=== PATIENT | female | born 1940 | race Caucasian/White ===

== ENCOUNTER → 2016-08-21 | Outpatient (CLI) | payer MEDICARE ==
[2016-03-15 11:15] VITALS: BP 117/70
[~2016-08-21] MED LIST: ASCO100065 PO; FERR325C PO; GLUC1CAP14 PO; HYDR-2666 PO; HYDR25TA9 PO; LOSA100T6 PO; LOSA1TAB17 PO; MULT1TAB97 PO; NAPR550T3 PO; OMEG1CAP28 PO; TRAM50TA PO; VITA1CAP PO; ZOLP10TA PO
--- NOTE | 2016-08-21 14:20 | KCIC ---
PROCEDURE MRI lumbar spine without contrast. HISTORY Spinal stenosis, low back pain for years, bilateral lower extremity with numbness, symptoms worse with standing TECHNIQUE Multiplanar, multi sequential, non contrast MR imaging of the lumbar spine was performed. Contrast: None COMPARISON November 22, 2015 FINDINGS There are again interbody cages at L4-5. There is again superior height loss of L2 not associated with significant marrow edema. There is similar minimal posterior subluxation L2 relative to L3 and L1 relative to L2. There is negligible anterior spondylolisthesis at L4-5. There is advanced degenerative disc disease L1-2 and L2-3 to a lesser degree at L3-4 as seen previously. Conus terminates at L1. Trace L2-3 endplate edema is likely reactive/degenerative in etiology. T10-11: There has been posterior decompression. There is minimal posterior bulge. There is facet degenerative change. There is likely at least moderate left and mild right neural foramina compromise at this level. T11-12: There is facet degenerative change. Spinal canal and neural foramina are adequate T12-L1: There is disc osteophyte complex, superimposed bulge and more central protrusion. There is indentation upon the ventral thecal sac, narrowing of the central canal to approximately 7 millimeters somewhat greater than previously.. There is contact of the ventral surface of distal cord. Neural foramina are adequate. L1-2: There again has been posterior decompression. There is again minimal disc osteophyte complex and bulge. Spinal canal and neural foramina are adequate. L2-L3: There again has been posterior decompression. There is facet hypertrophic change greater on the left. There is a minimal disc osteophyte complex and bulge. Spinal canal is overall adequate. There is again severe neural foramina compromise bilaterally. L3-4: There is again severe bilateral facet hypertrophic change. There again has been posterior decompression. Spinal canal is not significantly narrowed. There is again fairly severe neural foramina compromise bilaterally. L4-5: There again has been posterior decompression. There is again facet hypertrophic change, also residual mild buckling of the ligamentum flavum on the left. Spinal canal is overall adequate, mild indentation upon the posterior left thecal sac unchanged. Neural foramina are overall adequate. L5-S1: There is again severe facet degenerative change and buckling of the ligamentum flavum. There is again moderate right and mild left lateral recess stenosis from posteriorly. There is overall mild narrowing of the left neural foramen, right neural foramen minimally narrowed from posteriorly proximally. IMPRESSION 1. Comparing with the November 2015 exam, findings are mostly unchanged although somewhat greater degree of indentation upon the thecal sac centrally at T12-L1 by more central protrusion, contact of the distal cord at this level. There again has been multilevel level posterior decompression. There is similar moderate right and mild left lateral recess stenosis L5-S1. 2. There is multilevel neural foramina compromise as stated including severe narrowing bilaterally at L3-4 and L2-L3. 3. There is again multilevel lumbar degenerative disc disease greatest at L1-L2 and L2-3. Electronically signed by: Stanley Garnica MD (Aug 21, 2016 14:18:40)
== END | disposition home or self-care (01) ==
LOC: KCIC MRI 12:41
PROVIDERS: ATTEND Family Medicine
DX: M51.36 Other intervertebral disc degeneration, lumbar region (principal)
CPT/HCPCS: 72148

== ENCOUNTER → 2016-09-05 | Outpatient (CLI) | payer MEDICARE ==
[2016-03-15 11:15] VITALS: BP 117/70
--- NOTE | 2016-09-05 13:38 | KCIC ---
PROCEDURE MRI thoracic spine without contrast. HISTORY Stenosis. Leg numbness. Right hand numbness. Prior surgery in lumbar spine. TECHNIQUE Sagittal T1, sagittal T2, sagittal STIR, axial T1, and axial T2 sequences are provided. COMPARISON December 09, 2015. FINDINGS Since prior study, there has been decompression at T10-T11 and T11-T12. Numbering system is based on counting down from the dens, again patient has a transitional vertebral body as noted on prior reports. There is endplate edema at T9-T10 which appears degenerative. There is no worrisome marrow lesion. There is no change in alignment. 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 There is no cord signal abnormality. Allowing for mild motion degradation on the axial series, degenerative findings will be estimated below: C7-T1: Disc osteophyte complex and uncinate process spurring is noted with left foraminal narrowing. T1-T2: Disc osteophyte complex and facet hypertrophy is noted with high-grade bilateral foraminal narrowing and mild canal stenosis. T2-T3: Disc osteophyte complex with left paracentral protruding component is noted. Protruding component contacts the cord with cord flattening. There is mild to moderate foraminal narrowing. T3-T4: Facet hypertrophy is noted with at least mild right foraminal narrowing. There is minimal canal stenosis. There may be buckling of ligamentum flavum. T4-T5: There is no canal or foraminal compromise. T5-T6: There is mild facet hypertrophy and mild foraminal narrowing. T6-T7: Mild disc bulge and facet hypertrophy are noted with mild to moderate left and mild right foraminal narrowing. T7-T8: Disc osteophyte complex and facet hypertrophy are noted with at least mild foraminal narrowing and minimal canal stenosis. T8-T9: These 2 vertebral bodies are partially fused. This is probably degenerative. There is a disc osteophyte complex with mild to moderate right and mild left foraminal narrowing, effacement of the ventral CSF column. T9-T10: Disc osteophyte complex and facet hypertrophy along with probable buckling of ligamentum flavum are noted. There is canal stenosis which is at least moderate, midline AP diameter of the thecal sac narrowed to 5 millimeters. There is cord flattening but no definite cord hyperintensity. There is high-grade bilateral foraminal narrowing. Findings at this level have increased. T10-T11: There is an irregular disc osteophyte complex with left paracentral protruding component. There is facet hypertrophy. There is left lateral recess narrowing. There is compression of the cord on the left but no cord hyperintensity. Midline AP diameter of the thecal sac is mildly narrowed to 8 millimeters although this is improved from the preoperative MRI. There is high-grade bilateral foraminal narrowing. T11-T12: Disc bulge and facet hypertrophy are noted without canal stenosis. Decompression is noted. Foraminal narrowing is at least mild to moderate. T12-L1: Disc bulge and facet hypertrophy are noted with no high-grade canal or foraminal compromise. L1-L2: Disc osteophyte complex and facet hypertrophy are noted, midline AP diameter of the thecal sac narrowed to 8 millimeters. Left kidney may be absent surgically, stable soft tissue intensity in the left renal fossa. IMPRESSION 1. Since the prior study there has been decompression performed at T10-T11 and T11-T12. There is decrease in degree of canal stenosis at these levels. 2. Canal stenosis is now most notable at T9-T10 where it is increased from prior study. Electronically signed by: Nikos Palmer MD (Sep 05, 2016 13:36:32)
== END | disposition home or self-care (01) ==
LOC: KCIC MRI 11:19
PROVIDERS: ATTEND Neurological Surgery
DX: M48.04 Spinal stenosis, thoracic region (principal)
CPT/HCPCS: 72146

== ENCOUNTER 2016-11-10 13:20 | Inpatient (IN) | payer MEDICARE ==
[~2016-11-10] VITALS: Ht 165.1 cm; Wt 116.6 kg
[~2016-11-10 13:20] MED LIST changes: -GLUC1CAP14 PO; +GLUCOSAMINE 1,1 EACH PO
[2016-11-10] MEDS ORDERED: IV NORMAL SALINE 1000ML BAG 1,000 ML IV ONE (13:45)
[2016-11-10] MEDS ORDERED: ONDANSETRON PF 4 MG/2 ML VIAL. IV ONE (13:45)
[2016-11-10 13:59] LABS: BASO % 0 % (0-3); EOS % 1 % (0-3); HEMATOCRIT 38.5 % (36.0-47.0); HEMOGLOBIN 12.5 g/dL (12.0-15.5); LYMPH # 1.5 x10^3/uL (1.0-4.8); LYMPH % 17 % (24-48); MEAN CORPUSCULAR HEMOGLOBIN 27 pg (25-35); MEAN CORPUSCULAR HGB CONC 33 g/dL (31-37); MEAN CORPUSCULAR VOLUME 81 fL (79-100); MONO % 5 % (0-9); NEUT % 78 % (31-73); PLATELET COUNT 234 x10^3/uL (140-400); RED BLOOD COUNT 4.74 x10^6/uL (3.50-5.40); RED CELL DISTRIBUTION WIDTH 15.1 % (11.5-14.5); WHITE BLOOD COUNT 9.2 x10^3/uL (4.0-11.0)
[2016-11-10 14:08] LABS: INR 1.1 (0.8-1.1); PROTHROMBIN TIME PATIENT 13.5 SEC (11.7-14.0)
[2016-11-10 14:11] LABS: CALCIUM 9.2 mg/dL (8.5-10.1); CREATININE 0.9 mg/dL (0.6-1.0); GFR 61.2; POTASSIUM 4.2 mmol/L (3.5-5.1)
[2016-11-10 14:16] LABS: ALBUMIN 4.1 g/dL (3.4-5.0); ALBUMIN/GLOBULIN RATIO 1.1 (1.0-1.7); TOTAL BILIRUBIN 0.4 mg/dL (0.2-1.0); TOTAL PROTEIN 7.8 g/dL (6.4-8.2)
--- NOTE | 2016-11-10 14:22 | RAD ---
CT head without contrast History: Dizziness. Comparison: None. Procedure: Axial images are obtained of the head from the skull base through the vertex without IV contrast. One or more of the following individualized dose reduction techniques were utilized for the study: Automated exposure control Adjustment of mA and/or kV according to patient's size Use of iterative reconstruction technique. Findings: The ventricles and sulci are normal for the patient's age. No mass-effect, intracranial mass, midline shift, hemorrhage or obvious acute infarction is identified. Basilar cisterns are patent. Bone windows demonstrate no significant calvarial abnormality. The visualized paranasal sinuses appear clear. Impression: No acute intracranial process. Please note that CT can be relatively insensitive to acute ischemic infarction for up to 24 hours after symptom onset.
--- NOTE | 2016-11-10 14:25 | PHYS DOC ---
Past Medical History Past Medical History: Arthritis, Hypertension Additional Past Medical Histor: spinal stenosis Past Surgical History: Cholecystectomy, Hysterectomy Additional Past Surgical Histo: nephrectomy, shoulders, back, wrist Alcohol Use: Occasionally Drug Use: None Adult General Chief Complaint Chief Complaint: WEAKNESS/GENERALIZED HPI HPI Patient is a 76 year old female presenting to the emergency department for evaluation of a near syncope episode while she was getting her hair done. She says that all of a sudden she felt warm and lightheaded and as she was going to throw up. She tried walking and felt very weak diffusely. She says that she is having a headache and neck pain in addition to generalized myalgias and arthralgias. She is in no obvious distress with normal vital signs. Review of Systems Review of Systems Constitutional: Denies fever or chills [] Eyes: Denies change in visual acuity, redness, or eye pain [] HENT: Denies nasal congestion or sore throat [] Respiratory: Denies cough or shortness of breath [] Cardiovascular: No additional information not addressed in HPI [] GI: Denies abdominal pain, nausea, vomiting, bloody stools or diarrhea [] : Denies dysuria or hematuria [] Musculoskeletal: Denies back pain or joint pain [] Integument: Denies rash or skin lesions [] Neurologic: + headache, No focal weakness. +dizziness Current Medications Current Medications Current Medications Medications (Trade) Dose Ordered Sig/Gustavo Start Time Stop Time Status Last Admin Dose Admin Ondansetron HCl (Zofran) 8 mg 1X ONCE 11/10/16 13:45 11/10/16 13:46 DC 11/10/16 14:14 8 MG Sodium Chloride 1,000 ml @ 1,000 mls/hr 1X ONCE 11/10/16 13:45 11/10/16 14:44 DC 11/10/16 14:15 1,000 MLS/HR Allergies Allergies Allergies Coded Allergies Type Severity Reaction Last Updated Verified Iodine and Iodide Containing Produc Allergy Intermediate HOT FLASHES 03/14/16 Yes Sulfa (Sulfonamide Antibiotics) Allergy Intermediate 03/14/16 Yes Physical Exam Physical Exam Constitutional: Well developed, well nourished, no acute distress, non-toxic appearance. [] HENT: Normocephalic, atraumatic, bilateral external ears normal, oropharynx moist, no oral exudates, nose normal. [] Eyes: PERRLA, EOMI, conjunctiva normal, no discharge. [] Neck: Normal range of motion, no tenderness, supple, no stridor. [] Cardiovascular:Heart rate regular rhythm, no murmur [] Lungs & Thorax: Bilateral breath sounds clear to auscultation [] Abdomen: Bowel sounds normal, soft, no tenderness, no masses, no pulsatile masses. [] Skin: Warm, dry, no erythema, no rash. [] Back: No tenderness, no CVA tenderness. [] Extremities: No tenderness, no cyanosis, no clubbing, ROM intact, no edema. [] Neurologic: Alert and oriented X 3, normal motor function, normal sensory function, no focal deficits noted. [] Current Patient Data Vital Signs Vital Signs Date Time Temp Pulse Resp B/P (MAP) Pulse Ox O2 Delivery O2 Flow Rate FiO2 11/10/16 14:30 60 18 168/84 (112) 94 Room Air 11/10/16 13:55 97.7 97.7 Lab Values Laboratory Tests Test 11/10/16 13:47 White Blood Count 9.2 x10^3/uL (4.0-11.0) Red Blood Count 4.74 x10^6/uL (3.50-5.40) Hemoglobin 12.5 g/dL (12.0-15.5) Hematocrit 38.5 % (36.0-47.0) Mean Corpuscular Volume 81 fL (79-100) Mean Corpuscular Hemoglobin 27 pg (25-35) Mean Corpuscular Hemoglobin Concent 33 g/dL (31-37) Red Cell Distribution Width 15.1 % (11.5-14.5) H Platelet Count 234 x10^3/uL (140-400) Neutrophils (%) (Auto) 78 % (31-73) H Lymphocytes (%) (Auto) 17 % (24-48) L Monocytes (%) (Auto) 5 % (0-9) Eosinophils (%) (Auto) 1 % (0-3) Basophils (%) (Auto) 0 % (0-3) Neutrophils # (Auto) 7.1 x10^3uL (1.8-7.7) Lymphocytes # (Auto) 1.5 x10^3/uL (1.0-4.8) Monocytes # (Auto) 0.4 x10^3/uL (0.0-1.1) Eosinophils # (Auto) 0.1 x10^3/uL (0.0-0.7) Basophils # (Auto) 0.0 x10^3/uL (0.0-0.2) Prothrombin Time 13.5 SEC (11.7-14.0) Prothrombin Time INR 1.1 (0.8-1.1) PTT 28 SEC (24-38) Sodium Level 134 mmol/L (136-145) L Potassium Level 4.2 mmol/L (3.5-5.1) Chloride Level 96 mmol/L (98-107) L Carbon Dioxide Level 27 mmol/L (21-32) Anion Gap 11 (6-14) Blood Urea Nitrogen 19 mg/dL (7-20) Creatinine 0.9 mg/dL (0.6-1.0) Estimated GFR (Cockcroft-Gault) 61.2 BUN/Creatinine Ratio 21 (6-20) H Glucose Level 124 mg/dL (70-99) H Calcium Level 9.2 mg/dL (8.5-10.1) Magnesium Level 2.0 mg/dL (1.8-2.4) Total Bilirubin 0.4 mg/dL (0.2-1.0) Aspartate Amino Transferase (AST) 21 U/L (15-37) Alanine Aminotransferase (ALT) 13 U/L (14-59) L Alkaline Phosphatase 81 U/L (46-116) Creatine Kinase 160 U/L (26-192) Troponin I Quantitative < 0.017 ng/mL (0.000-0.055) SR-[id number]-[id number]-Type Natriuretic Peptide 84 pg/mL (0-124) Total Protein 7.8 g/dL (6.4-8.2) Albumin 4.1 g/dL (3.4-5.0) Albumin/Globulin Ratio 1.1 (1.0-1.7) Lipase 182 U/L (73-393) Thyroid Stimulating Hormone (TSH) 2.118 uIU/mL (0.358-3.74) Laboratory Tests 11/10/16 13:47 Laboratory Tests 11/10/16 13:47 EKG EKG Normal sinus rhythm at 68 beats per minutes with leftward axis no obvious ST elevation or depression and normal T waves. Radiology/Procedures Radiology/Procedures CT head without contrast History: Dizziness. Comparison: None. Procedure: Axial images are obtained of the head from the skull base through the vertex without IV contrast. One or more of the following individualized dose reduction techniques were utilized for the study: Automated exposure control Adjustment of mA and/or kV according to patient's size Use of iterative reconstruction technique. Findings: The ventricles and sulci are normal for the patient's age. No mass-effect, intracranial mass, midline shift, hemorrhage or obvious acute infarction is identified. Basilar cisterns are patent. Bone windows demonstrate no significant calvarial abnormality. The visualized paranasal sinuses appear clear. Impression: No acute intracranial process. Please note that CT can be relatively insensitive to acute ischemic infarction for up to 24 hours after symptom onset. DICTATED and SIGNED BY: CARLIE ALICIA MD DATE: 11/10/16 1418 Course & Med Decision Making Course & Med Decision Making Patient with near syncopal episode and still says that she feels poorly so she' ll be admitted for further observation and treatment. Dragon Disclaimer Dragon Disclaimer This electronic medical record was generated, in whole or in part, using a voice recognition dictation system. Departure Departure Impression: Primary Impression: Near syncope Disposition: ADMITTED INPATIENT Admitting Physician: Evelyn Hess Condition: STABLE Referrals: UNKNOWN PCP NAME (PCP) VICTOR HUGO BAEZ DO Nov 10, 2016 14:25
--- NOTE | 2016-11-10 15:01 | EKG ---
[facility] [address] [place] [address] Test Date: 2016-11-10 Test Time: 13:50:30 Pat Name: RAMYA LIMON Department: Room: Gender: F Guest House Manager: : 1940 Requested By: VICTOR HUGO BAEZ Order Number: [id number] Reading MD: Isaias Taylor Measurements Intervals Stevenson Rate: 68 P: -14 FL: 162 QRS: -10 QRSD: 94 T: 31 QT: 398 QTc: 428 Interpretive Statements SINUS RHYTHM LEFTWARD AXIS R-S TRANSITION ZONE IN V LEADS DISPLACED TO THE LEFT OTHERWISE NORMAL ECG RI6.01 Unconfirmed report No previous ECG available for comparison Electronically Signed On 11-15-2016 9:31:41 CDT by Isaias Taylor
[2016-11-10] MEDS ORDERED: LABETALOL 20 MG/4 ML DISP.SYRIN. IVP ONE (15:15)
[2016-11-10] MEDS ORDERED: ONDANSETRON PF 4 MG/2 ML VIAL. IV PRN ×2 (15:15→15:43)
[2016-11-10 15:33] LABS: BILIRUBIN,URINE NEGATIVE (NEG); GLUCOSE,URINE NEGATIVE (NEG); NITRITE,URINE NEGATIVE (NEG); PROTEIN,URINE NEGATIVE (NEG-TRACE); UROBILINOGEN,URINE 0.2 mg/dL (0.2 mg/dL)
[2016-11-10] MEDS ORDERED: ACETAMINOPHEN 325 MG TABLET. PO PRN (15:45)
[2016-11-10] MEDS ORDERED: LABETALOL 20 MG/4 ML DISP.SYRIN. IVP PRN (15:45)
--- NOTE | 2016-11-10 15:57 | PDOC1 ---
History and Physical Date of Admission Date of Admission DATE: 11/10/16 TIME: 15:46 Identification/Chief Complaint Chief Complaint near passing out while in a salon Problems: Source Source: Caregiver, Chart review, Patient History of Present Illness History of Present Illness 76 y.o female who was having her hair done in salon today, felt so tired, flushed, "dozed off" near passed out, No LOC. They called 911, EMS arrived, field prelim investigation neg but advised to go to ER, ER labs ok, except still weak, notes left side of arm feeling "heavy", neck pain, some headache, NEuro exam non focal. BP on high side 180s (usual 150-160s), Did take her bP meds today. ER brought TIA and family asking me about it, Hx of back sx by John Ramirez Mar 2016,. no known CAD, but does have HTN. Past Medical History Cardiovascular: HTN Pulmonary: No pertinent hx CENTRAL NERVOUS SYSTEM: Other (carotid stenosis no stents) GI: No pertinent hx Heme/Onc: No pertinent hx Hepatobiliary: No pertinent hx Psych: No pertinent hx Rheumatologic: No pertinent hx Infectious disease: No pertinent hx ENT: No pertinent hx Renal/: No pertinent hx Endocrine: No pertinent hx Dermatology: No pertinent hx Past Surgical History Past Surgical History: Other (back sx x2) Family History Family History: Hypertension Social History Smoke: No ALCOHOL: none Drugs: None Current Medications Current Medications Current Medications Ondansetron HCl (Zofran) 8 mg 1X ONCE IV Last administered on 11/10/16 14:14; Start 11/10/16 at 13:45; Stop 11/10/16 at 13:46; Status DC Sodium Chloride 1,000 ml @ 1,000 mls/hr 1X ONCE IV Last administered on 14:15; Start 11/10/16 at 13:45; Stop 11/10/16 at 14:44; Status DC Ondansetron HCl (Zofran) 4 mg PRN Q8HRS PRN IV NAUSEA/VOMITING; Start 11/10/16 at 15:15; Stop 11/11/16 at 15:14 Labetalol HCl (Normodyne) 20 mg 1X ONCE IVP ; Start 11/10/16 at 15:15; Stop 11/10 at 15:15; Status DC Active Scripts Active Reported Ambien (Zolpidem Tartrate) 10 Mg Tablet 1 Tab PO QHS Losartan-Hctz 100-25 Mg Tab (Losartan/Hydrochlorothiazide) 1 Each Tablet 1 Tab PO DAILY LAST DOSE GIVEN: DATE:03/14/16 TIME:9:00 a.m. NEXT DOSE DUE: DATE:03/16/16 TIME:9:00 a.m. Naproxen Sodium 550 Mg Tablet 550 Mg PO BID Allergies Allergies: Coded Allergies: Iodine and Iodide Containing Produc (Verified Allergy, Intermediate, HOT FLASHES, 03/14/16) CONTRAST Sulfa (Sulfonamide Antibiotics) (Verified Allergy, Intermediate, 03/14/16) Physical Exam General: Alert, Oriented X3, Cooperative, No acute distress, Other (feels weak though) HEENT: Other (no appreciable carotid bruit) Lungs: Clear to auscultation, Normal air movement Heart: S1S2, RRR, no thrills, no rubs, no gallops Cardiovascular: S1, S2 Breasts: Normal, Rt breast nml w/o mass, Lt breast nml w/o mass, Nipples normal Abdomen: Normal bowel sounds, Soft, No tenderness, No hepatosplenomegaly, No masses Male Genitals Exam: normal genitalia, normal prostate Rectal Exam: not examined PELVIC: Nml ext genitalia Extremities: No clubbing, No cyanosis, No edema, Normal pulses, No tenderness/ swelling Skin: No rashes, No breakdown, No significant lesion Neuro: Normal gait, Normal speech, Strength at 5/5 X4 ext, Normal tone, Sensation intact, Cranial nerves 3-12 NL, Reflexes 2+ Psych/Mental Status: Mental status NL, Mood NL Vitals Vitals Vital Signs Date Time Temp Pulse Resp B/P (MAP) Pulse Ox O2 Delivery O2 Flow Rate FiO2 11/10/16 15:17 60 18 188/84 (118) 99 11/10/16 14:30 Room Air 11/10/16 13:55 97.7 97.7 Labs Labs Laboratory Tests Test 11/10/16 13:47 White Blood Count 9.2 x10^3/uL (4.0-11.0) Red Blood Count 4.74 x10^6/uL (3.50-5.40) Hemoglobin 12.5 g/dL (12.0-15.5) Hematocrit 38.5 % (36.0-47.0) Mean Corpuscular Volume 81 fL (79-100) Mean Corpuscular Hemoglobin 27 pg (25-35) Mean Corpuscular Hemoglobin Concent 33 g/dL (31-37) Red Cell Distribution Width 15.1 % (11.5-14.5) Platelet Count 234 x10^3/uL (140-400) Neutrophils (%) (Auto) 78 % (31-73) Lymphocytes (%) (Auto) 17 % (24-48) Monocytes (%) (Auto) 5 % (0-9) Eosinophils (%) (Auto) 1 % (0-3) Basophils (%) (Auto) 0 % (0-3) Neutrophils # (Auto) 7.1 x10^3uL (1.8-7.7) Lymphocytes # (Auto) 1.5 x10^3/uL (1.0-4.8) Monocytes # (Auto) 0.4 x10^3/uL (0.0-1.1) Eosinophils # (Auto) 0.1 x10^3/uL (0.0-0.7) Basophils # (Auto) 0.0 x10^3/uL (0.0-0.2) Prothrombin Time 13.5 SEC (11.7-14.0) Prothromb Time International Ratio 1.1 (0.8-1.1) Activated Partial Thromboplast Time 28 SEC (24-38) Sodium Level 134 mmol/L (136-145) Potassium Level 4.2 mmol/L (3.5-5.1) Chloride Level 96 mmol/L (98-107) Carbon Dioxide Level 27 mmol/L (21-32) Anion Gap 11 (6-14) Blood Urea Nitrogen 19 mg/dL (7-20) Creatinine 0.9 mg/dL (0.6-1.0) Estimated GFR (Cockcroft-Gault) 61.2 BUN/Creatinine Ratio 21 (6-20) Glucose Level 124 mg/dL (70-99) Calcium Level 9.2 mg/dL (8.5-10.1) Magnesium Level 2.0 mg/dL (1.8-2.4) Total Bilirubin 0.4 mg/dL (0.2-1.0) Aspartate Amino Transf (AST/SGOT) 21 U/L (15-37) Alanine Aminotransferase (ALT/SGPT) 13 U/L (14-59) Alkaline Phosphatase 81 U/L (46-116) Creatine Kinase 160 U/L (26-192) Troponin I Quantitative < 0.017 ng/mL (0.000-0.055) PS-Ssk-M-Type Natriuretic Peptide 84 pg/mL (0-124) Total Protein 7.8 g/dL (6.4-8.2) Albumin 4.1 g/dL (3.4-5.0) Albumin/Globulin Ratio 1.1 (1.0-1.7) Lipase 182 U/L (73-393) Thyroid Stimulating Hormone (TSH) 2.118 uIU/mL (0.358-3.74) Laboratory Tests Test 11/10/16 13:47 White Blood Count 9.2 x10^3/uL (4.0-11.0) Red Blood Count 4.74 x10^6/uL (3.50-5.40) Hemoglobin 12.5 g/dL (12.0-15.5) Hematocrit 38.5 % (36.0-47.0) Mean Corpuscular Volume 81 fL (79-100) Mean Corpuscular Hemoglobin 27 pg (25-35) Mean Corpuscular Hemoglobin Concent 33 g/dL (31-37) Red Cell Distribution Width 15.1 % (11.5-14.5) Platelet Count 234 x10^3/uL (140-400) Neutrophils (%) (Auto) 78 % (31-73) Lymphocytes (%) (Auto) 17 % (24-48) Monocytes (%) (Auto) 5 % (0-9) Eosinophils (%) (Auto) 1 % (0-3) Basophils (%) (Auto) 0 % (0-3) Neutrophils # (Auto) 7.1 x10^3uL (1.8-7.7) Lymphocytes # (Auto) 1.5 x10^3/uL (1.0-4.8) Monocytes # (Auto) 0.4 x10^3/uL (0.0-1.1) Eosinophils # (Auto) 0.1 x10^3/uL (0.0-0.7) Basophils # (Auto) 0.0 x10^3/uL (0.0-0.2) Prothrombin Time 13.5 SEC (11.7-14.0) Prothromb Time International Ratio 1.1 (0.8-1.1) Activated Partial Thromboplast Time 28 SEC (24-38) Sodium Level 134 mmol/L (136-145) Potassium Level 4.2 mmol/L (3.5-5.1) Chloride Level 96 mmol/L (98-107) Carbon Dioxide Level 27 mmol/L (21-32) Anion Gap 11 (6-14) Blood Urea Nitrogen 19 mg/dL (7-20) Creatinine 0.9 mg/dL (0.6-1.0) Estimated GFR (Cockcroft-Gault) 61.2 BUN/Creatinine Ratio 21 (6-20) Glucose Level 124 mg/dL (70-99) Calcium Level 9.2 mg/dL (8.5-10.1) Magnesium Level 2.0 mg/dL (1.8-2.4) Total Bilirubin 0.4 mg/dL (0.2-1.0) Aspartate Amino Transf (AST/SGOT) 21 U/L (15-37) Alanine Aminotransferase (ALT/SGPT) 13 U/L (14-59) Alkaline Phosphatase 81 U/L (46-116) Creatine Kinase 160 U/L (26-192) Troponin I Quantitative < 0.017 ng/mL (0.000-0.055) PX-Bzc-U-Type Natriuretic Peptide 84 pg/mL (0-124) Total Protein 7.8 g/dL (6.4-8.2) Albumin 4.1 g/dL (3.4-5.0) Albumin/Globulin Ratio 1.1 (1.0-1.7) Lipase 182 U/L (73-393) Thyroid Stimulating Hormone (TSH) 2.118 uIU/mL (0.358-3.74) VTE Prophylaxis Ordered VTE Prophylaxis Devices: Yes VTE Pharmacological Prophylaxi: Yes Assessment/Plan Assessment/Plan 1. Syncope near syncope could be vagal but need to r/o other pathology (see below) 2. Acute neck pain with left arm pain r./o cervical pathology 3. HTN urgency POA 4. Obesity 5. Hx carotid stenosis (no CEA or stents placed) 6. CHroniclumbago hx back sx x 2 PLAN: Admit 2 [place] MRI neck given # 2 finding Include brain MRI - family concerned of stoke, had left arm weakness Check carotid sono since mentions to me hx carotid stenosis Resume meds Add prn labetolol for bP IF still high will need second agent PT/OT Dw family and ER TON CONNELLY MD Nov 10, 2016 15:57
[2016-11-10] MEDS ORDERED: ZOLPIDEM 5 MG TABLET. PO PRN (16:00)
[2016-11-10 16:06] LABS: BACTERIA,URINE FEW /HPF (0-FEW); RBC,URINE 0 /HPF (0-2); SQUAMOUS EPITHELIAL CELL,UR FEW /LPF
--- NOTE | 2016-11-10 16:57 | RAD ---
Indication syncopal episode. Grayscale color Doppler and spectral imaging was performed. The examination was targeted to the carotid bifurcations. On the right there is some modest plaquing at the bifurcation. The color Doppler images do not suggest marked turbulence. The common carotid waveform and velocities are normal. The internal carotid waveform and velocities are also normal. The external carotid has a normal appearance. The vertebral is patent and demonstrates normal directional flow. On the left there is modest plaquing similar to the contralateral side. The color Doppler images do not suggest significant turbulence. The common carotid waveform and velocities are normal. Internal carotid waveform and velocities are also normal. The external carotid has a normal appearance. The vertebral is patent and demonstrates normal directional flow. IMPRESSION: No evidence of hemodynamically significant stenosis at either carotid bifurcation. Stenosis 0-50%. Note: Stenosis calculations for CT, MR and conventional angiography are based upon determination of the distal ICA diameter in accordance with the NASCET methodology. Stenosis calculations for doppler studies are derived from validated velocity criteria which are known to correlate with NASCET methodology of determining stenosis. .
[2016-11-10 17:24] VITALS: BP 149/77
--- NOTE | 2016-11-10 17:42 | CARD ---
APPROVED REPORT EXAM: Two-dimensional and M-mode echocardiogram with Doppler and color Doppler. Other Information Quality : Good INDICATION Syncope RISK FACTORS Obesity 2D DIMENSIONS RVDd2.3 (2.9-3.5cm)Left Atrium(2D)3.9 (1.6-4.0cm) IVSd1.0 (0.7-1.1cm)Aortic Root(2D)2.8 (2.0-3.7cm) LVDd5.0 (3.9-5.9cm)LVOT Diameter2.3 (1.8-2.4cm) PWd1.1 (0.7-1.1cm)LVDs3.1 (2.5-4.0cm) FS (%) 30.0 %SV80.8 ml LVEF(%)60.0 (>50%) Aortic Valve AoV Peak Emil.127.3cm/sAoV VTI27.4cm AO Peak GR.6.5mmHgLVOT VTI 25.20cm AO Mean GR.4mmHgAVA (VTI)3.80cm2 Mitral Valve MV E Ivvdteyy53.1cm/sMV DECEL IXET671va MV A Hkfcalui70.6cm/sE/A Ratio0.8 TDI Lateral E' P. V6.76cm/sMedial E' P. V7.53cm/s E/Lateral E'11.7E/Medial E'10.5 Tricuspid Valve TR P. Lorjtaac421jr/sRAP IWBEAKPO5fySr TR Peak Gr.73mqIyNFLX27lnGi Pulmonary Vein S1 Tklplrre52.4cm/sS2 Pvsygyxf50.94cm/s D2 Apioowtp09.9cm/sPVa scqvrvee960fgtd LEFT VENTRICLE The left ventricle is normal size. There is normal left ventricular wall thickness. The left ventricu lar systolic function is normal and the ejection fraction is within normal range. The Ejection Fracti on is 55-60%. There is normal LV segmental wall motion. Transmitral Doppler flow pattern is Grade I-a bnormal relaxation pattern. RIGHT VENTRICLE The right ventricle is normal size. The right ventricular systolic function is normal. ATRIA The left atrium size is normal. The right atrium size is normal. The interatrial septum is intact wit h no evidence for an atrial septal defect or patent foramen ovale as noted on 2-D or Doppler imaging. AORTIC VALVE The aortic valve is calcified but opens well. Doppler and Color Flow revealed no significant aortic r egurgitation. There is no significant aortic valvular stenosis. MITRAL VALVE The mitral valve is normal in structure and function. There is no evidence of mitral valve prolapse. There is no mitral valve stenosis. Doppler and Color-flow revealed trace mitral regurgitation. TRICUSPID VALVE The tricuspid valve is normal in structure and function. Doppler and Color Flow revealed physiologica l tricuspid regurgitation. The PA pressure was estimated at 27 mmHg. There is no tricuspid valve sten osis. PULMONIC VALVE Doppler and Color Flow revealed trace pulmonic valvular regurgitation. There is no pulmonic valvular stenosis. GREAT VESSELS The aortic root is normal in size. The ascending aorta is normal in size. The IVC is normal in size a nd collapses >50% with inspiration. PERICARDIAL EFFUSION There is no evidence of significant pericardial effusion. Critical Notification Critical Value: No <Conclusion> The left ventricular systolic function is normal and the ejection fraction is within normal range. Th e Ejection Fraction is 55-60%. There is normal LV segmental wall motion.
[2016-11-10 19:00] VITALS: BP 152/73
--- NOTE | 2016-11-10 19:26 | RAD ---
INDICATION: Confusion and falls COMPARISON: CT from earlier same day TECHNIQUE: Multiplanar, multisequence MRI images obtained through the brain. There is some limitation secondary to patient motion. FINDINGS: No midline shift. Basilar cistern patent. No regions of abnormal restricted diffusion. Ventricles and sulci are within normal limits in size for the patient's age. No intracranial hemorrhage or gross mass seen. No retro-orbital hematoma. Small fluid in left mastoid air cells. IMPRESSION: 1. No MRI evidence of acute infarct or hemorrhage. 2. Scattered foci of high T2 signal within white matter. Nonspecific but can be seen with chronic small vessel ischemic disease. Electronically signed by: Scott Wilkerson MD (11/10/2016 7:23 PM)
[2016-11-10] MEDS: NAPROXEN 500 MG TABLET PO SCH (20:53)
[2016-11-10] MEDS ORDERED: ZOLPIDEM 5 MG TABLET. PO SCH (21:00)
--- NOTE | 2016-11-10 21:21 | RAD ---
History: transient confusion, NECK PAIN Technique: Multisequential imaging of the cervical spine was performed, without contrast. Findings: No abnormal marrow edema to suggest acute fracture. There is a large amount of patient motion as well as artifact which limits the evaluation for cord edema. There is apparent T2 hyperintense structure seen within the left neural foramen and extending just peripheral to it at the T3-4 level measuring up to approximately 12 x 7 mm. This may be low T1 signal. Individual levels are as follows: C2-3: Mild central disc protrusion with the central canal and neural foramina grossly patent. C3-4: Posterior disc protrusion and osteophyte formation with associated moderate to severe central canal narrowing. Mild left and moderate right neural foraminal stenosis. C4-5: Disc osteophyte complex with severe central canal narrowing and mass effect on spinal cord. Suspect at least moderate right and mild left neural foraminal stenosis but the neural foramina are largely obscured by patient motion therefore in accurate evaluation. C5-6: Severe patient motion at this level. There is suspected posterior disc protrusion as well as osteophyte formation with severe central canal stenosis and mass effect on the spinal cord. Suspected bilateral neural foraminal stenosis but very limited exam secondary to patient motion. C6-7: Left paracentral disc protrusion causing mass effect on the ventral aspect of the spinal cord. Severe central canal stenosis. There is likely left neural foraminal stenosis but poor evaluation secondary to patient motion. C7-T1: Disc osteophyte complex with anterior indentation of the thecal sac with mild central canal stenosis. Moderate left and ujjv-mk-qhreseno right neural foraminal stenosis. Some of the images are degraded by motion. There is also disc osteophyte complex at T1-2 causing some central canal narrowing. Impression: Degenerative disc disease with disc osteophyte complexes as well as facet and uncovertebral hypertrophy contributing to central canal and neural foraminal stenosis as detailed above. Some of the regions of central canal stenosis are severe with effacement of the CSF and mass effect on the spinal cord including at C3-4, C4-5, C5-6 and C6-7. Within the partially visualized thoracic spine there is a T2 hyperintense structure seen extending through the left neural foramen at T3-4. This is incompletely evaluated on this examination and difficult to tell if this is related to the patient's degenerative changes or if there is an alternative cause such as a nerve sheath tumor or cyst in the region. This was also present on patient's prior MRI of the thoracic spine from November 2015. Report called to the patient's floor at 9:15 PM on date of exam Electronically signed by: Scott Wilkerson MD (11/10/2016 9:17 PM)
[2016-11-10 23:00] VITALS: BP 144/71
[2016-11-11 03:00] VITALS: BP 134/69
[2016-11-11 04:06] LABS: BASO % 0 % (0-3); EOS % 2 % (0-3); HEMOGLOBIN 11.4 g/dL (12.0-15.5); LYMPH # 2.4 x10^3/uL (1.0-4.8); LYMPH % 31 % (24-48); MEAN CORPUSCULAR HEMOGLOBIN 26 pg (25-35); MEAN CORPUSCULAR HGB CONC 33 g/dL (31-37); MEAN CORPUSCULAR VOLUME 81 fL (79-100); MONO % 7 % (0-9); NEUT % 60 % (31-73); PLATELET COUNT 200 x10^3/uL (140-400); RED BLOOD COUNT 4.33 x10^6/uL (3.50-5.40); RED CELL DISTRIBUTION WIDTH 15.1 % (11.5-14.5); WHITE BLOOD COUNT 7.5 x10^3/uL (4.0-11.0)
[2016-11-11 04:26] LABS: ALBUMIN 3.1 g/dL (3.4-5.0); ALBUMIN/GLOBULIN RATIO 0.9 (1.0-1.7); GFR 54.2; POTASSIUM 3.9 mmol/L (3.5-5.1); TOTAL BILIRUBIN 0.4 mg/dL (0.2-1.0); TOTAL PROTEIN 6.7 g/dL (6.4-8.2)
[2016-11-11 07:58] VITALS: BP 154/73
[2016-11-11] MEDS ORDERED: LOSARTAN POTASSIUM 50 MG TABLET. PO SCH (09:00)
[2016-11-11] MEDS ORDERED: hydroCHLOROthiazide 25 MG TABLET PO SCH (09:00)
[2016-11-11] MEDS: NAPROXEN 500 MG TABLET PO SCH (09:13)
--- NOTE | 2016-11-11 10:50 | PDOC ---
SUBJECTIVE Subjective Pt seen/examined. Full consult to follow. 76F known to me due to prior surgery for thoracic stenosis. Has known cervical stenosis. Had syncopal episode in [employer] yesterday - felt overheated and lightheaded just prior to event. Denies convulsions, confusion. Told was out for less than one minute. Some neck pain upon arousal. This has resolved. Arms felt "heavy" but now baseline without focal weakness, paresthesias, or other acute changes. Has chronic difficulty with ambulation and uses a walker which has not acutely changed. Reports that she is at baseline now. Some headache. Neuro with full strength on exam and is at her baseline. MRI cervical spine with multilevel stenosis grossly stable compared to prior MRI one year ago. MRI brain unremarkable. No acute surgical intervention as neurologically intact/ baseline. Discussed potential interventions if changes or decline occurs. May d/ c and follow-up as outpatient from NS standpoint if otherwise meets criteria medically. Discussed with patient in detail. All questions answered. All in agreement. OBJECTIVE Vital Signs Vital Signs Date Time Temp Pulse Resp B/P (MAP) Pulse Ox O2 Delivery O2 Flow Rate FiO2 11/11/16 09:12 71 134/69 11/11/16 07:58 97.7 69 18 154/73 (100) 96 Room Air 97.7 11/11/16 03:00 97.7 71 17 134/69 (90) 100 Room Air 97.7 11/10/16 23:00 98.6 74 18 144/71 (95) 97 Room Air 98.6 11/10/16 20:55 Room Air 11/10/16 19:00 97.5 71 19 152/73 (99) 98 Room Air 97.5 11/10/16 17:24 97.5 61 20 149/77 (101) 100 Room Air 97.5 11/10/16 16:30 62 16 152/69 (96) 99 11/10/16 15:17 60 18 188/84 (118) 99 11/10/16 14:30 60 18 168/84 (112) 94 Room Air 11/10/16 13:55 97.7 62 20 188/91 (123) 98 Room Air 97.7 I & O Intake and Output 11/11/16 07:00 Intake Total 800 ml Output Total 2900 ml Balance -2100 ml Intake Oral 800 ml Output Urine Total 2900 ml COMMENT Lab Laboratory Tests Test 11/10/16 13:47 11/10/16 15:10 11/10/16 20:25 11/11/16 03:50 White Blood Count 9.2 x10^3/uL (4.0-11.0) 7.5 x10^3/uL (4.0-11.0) Red Blood Count 4.74 x10^6/uL (3.50-5.40) 4.33 x10^6/uL (3.50-5.40) Hemoglobin 12.5 g/dL (12.0-15.5) 11.4 g/dL (12.0-15.5) Hematocrit 38.5 % (36.0-47.0) 35.0 % (36.0-47.0) Mean Corpuscular Volume 81 fL (79-100) 81 fL (79-100) Mean Corpuscular Hemoglobin 27 pg (25-35) 26 pg (25-35) Mean Corpuscular Hemoglobin Concent 33 g/dL (31-37) 33 g/dL (31-37) Red Cell Distribution Width 15.1 % (11.5-14.5) 15.1 % (11.5-14.5) Platelet Count 234 x10^3/uL (140-400) 200 x10^3/uL (140-400) Neutrophils (%) (Auto) 78 % (31-73) 60 % (31-73) Lymphocytes (%) (Auto) 17 % (24-48) 31 % (24-48) Monocytes (%) (Auto) 5 % (0-9) 7 % (0-9) Eosinophils (%) (Auto) 1 % (0-3) 2 % (0-3) Basophils (%) (Auto) 0 % (0-3) 0 % (0-3) Neutrophils # (Auto) 7.1 x10^3uL (1.8-7.7) 4.5 x10^3uL (1.8-7.7) Lymphocytes # (Auto) 1.5 x10^3/uL (1.0-4.8) 2.4 x10^3/uL (1.0-4.8) Monocytes # (Auto) 0.4 x10^3/uL (0.0-1.1) 0.5 x10^3/uL (0.0-1.1) Eosinophils # (Auto) 0.1 x10^3/uL (0.0-0.7) 0.1 x10^3/uL (0.0-0.7) Basophils # (Auto) 0.0 x10^3/uL (0.0-0.2) 0.0 x10^3/uL (0.0-0.2) Prothrombin Time 13.5 SEC (11.7-14.0) Prothromb Time International Ratio 1.1 (0.8-1.1) Activated Partial Thromboplast Time 28 SEC (24-38) Sodium Level 134 mmol/L (136-145) 138 mmol/L (136-145) Potassium Level 4.2 mmol/L (3.5-5.1) 3.9 mmol/L (3.5-5.1) Chloride Level 96 mmol/L (98-107) 102 mmol/L (98-107) Carbon Dioxide Level 27 mmol/L (21-32) 27 mmol/L (21-32) Anion Gap 11 (6-14) 9 (6-14) Blood Urea Nitrogen 19 mg/dL (7-20) 17 mg/dL (7-20) Creatinine 0.9 mg/dL (0.6-1.0) 1.0 mg/dL (0.6-1.0) Estimated GFR (Cockcroft-Gault) 61.2 54.2 BUN/Creatinine Ratio 21 (6-20) 17 (6-20) Glucose Level 124 mg/dL (70-99) 88 mg/dL (70-99) Calcium Level 9.2 mg/dL (8.5-10.1) 9.0 mg/dL (8.5-10.1) Magnesium Level 2.0 mg/dL (1.8-2.4) Total Bilirubin 0.4 mg/dL (0.2-1.0) 0.4 mg/dL (0.2-1.0) Aspartate Amino Transf (AST/SGOT) 21 U/L (15-37) 14 U/L (15-37) Alanine Aminotransferase (ALT/SGPT) 13 U/L (14-59) 11 U/L (14-59) Alkaline Phosphatase 81 U/L (46-116) 65 U/L (46-116) Creatine Kinase 160 U/L (26-192) Troponin I Quantitative < 0.017 ng/mL (0.000-0.055) < 0.017 ng/mL (0.000-0.055) < 0.017 ng/mL (0.000-0.055) RL-Prm-D-Type Natriuretic Peptide 84 pg/mL (0-124) Total Protein 7.8 g/dL (6.4-8.2) 6.7 g/dL (6.4-8.2) Albumin 4.1 g/dL (3.4-5.0) 3.1 g/dL (3.4-5.0) Albumin/Globulin Ratio 1.1 (1.0-1.7) 0.9 (1.0-1.7) Lipase 182 U/L (73-393) Thyroid Stimulating Hormone (TSH) 2.118 uIU/mL (0.358-3.74) Urine Collection Type Unknown Urine Color Yellow Urine Clarity Clear Urine pH 7.0 Urine Specific [place] 1.010 Urine Protein Negative mg/dL (NEG-TRACE) Urine Glucose (UA) Negative mg/dL (NEG) Urine Ketones (Stick) Negative mg/dL (NEG) Urine Blood Negative (NEG) Urine Nitrite Negative (NEG) Urine Bilirubin Negative (NEG) Urine Urobilinogen Dipstick 0.2 mg/dL (0.2 mg/dL) Urine Leukocyte Esterase Small (NEG) Urine RBC 0 /HPF (0-2) Urine WBC 1-4 /HPF (0-4) Urine Squamous Epithelial Cells Few /LPF Urine Bacteria Few /HPF (0-FEW) MOHAN WILKES MD Nov 11, 2016 10:50
[2016-11-11 10:52] VITALS: BP 143/74
--- NOTE | 2016-11-11 14:54 | PDOC ---
Provider Note Provider Note Patient was discharged before I did rounds JUANJOSE MOYER MD Nov 11, 2016 14:54
--- NOTE | 2016-11-11 21:09 | DS ---
DATE OF DISCHARGE: 11/11/2016 ADMISSION DIAGNOSES: Nausea, dizziness, and falls. DISCHARGE DIAGNOSES: Resolving falls, resolving nausea, and spinal stenosis. CONSULT: Dr. Lopez. HOSPITAL COURSE: The patient is a pleasant 76-year-old female who presented with nausea and weakness and falls. She was admitted. We did some IV fluids. We did some physical therapy. She is doing better. We checked her spinal MRI as does have some spinal stenosis which is chronic. We did consult Dr. John Bernard. The patient was seen and examined this morning. The patient is doing well. We plan to discharge. DISPOSITION: Home. ACTIVITY: As tolerated. DIET: Low sodium. MEDICATIONS: Please see the MRAD. TOTAL TIME ON DISCHARGE: 36 minutes. JACINTO CARDONA DO DR: KELI/eduin JOB#: [id number] / [id number]
== END 2016-11-11 13:30 | disposition home or self-care (01) | DRG 74 ==
LOC: ER 13:20 → 5 NORTH 14:52
PROVIDERS: ADMIT Internal Medicine; ATTEND Internal Medicine
DX: G90.8 Other disorders of autonomic nervous system (principal); I16.0 Hypertensive urgency; M48.02 Spinal stenosis, cervical region; R55 Syncope and collapse; M19.90 Unspecified osteoarthritis, unspecified site; E66.9 Obesity, unspecified; I10 Essential (primary) hypertension; M25.78 Osteophyte, vertebrae; Z82.49 Family history of ischemic heart disease and other diseases of the circulatory system; Z90.5 Acquired absence of kidney; Z90.49 Acquired absence of other specified parts of digestive tract; Z90.710 Acquired absence of both cervix and uterus; Z86.73 Personal history of transient ischemic attack (TIA), and cerebral infarction without residual deficits; Z98.1 Arthrodesis status
CPT/HCPCS: 36415; 70450; 70551; 72141; 80053; 81001; 82550; 83690; 83735; 83880; 84443; 84484; 85027; 85610; 85730; 87086; 93005; 93306; 93880; 96361; 96374; J2405; J7030; 99285-25

== ENCOUNTER → 2018-04-11 | Outpatient (CLI) | payer MEDICARE ==
[~2018-04-11] MED LIST changes: -HYDR-2666 PO; +HYDR-2758 PO; -LOSA100T6 PO; +LOSA100T7 PO; -LOSA1TAB17 PO; +LOSA1TAB22 PO; +NAPR-677 PO; -NAPR550T3 PO
--- NOTE | 2018-04-11 16:54 | KCIC ---
MRI Thoracic Spine without contrast History: Bilateral leg numbness and weakness for 4 years, spinal stenosis, neuropathy Technique: Multiplanar, multi sequential noncontrast MR imaging was performed of the thoracic spine. Contrast: None Comparison: September 05, 2016 Findings: There is again interbody fusion at T10-11 and T8-T9. There is persistent fairly prominent endplate edema at T9-T10 and again advanced degenerative disc disease at this level. There has been development of T6-7 endplate edema, fairly advanced degenerative disc disease at this level which has progressed in the interval. There is again advanced degenerative disease at T7-8, to lesser degree at other levels most notable at T1-T2 and T11-12. Thoracic cord caliber is within normal limits. Thoracic vertebral body stature is unchanged. There is very minimal anterior spondylolisthesis T11-12. There is mild levoscoliosis of the thoracic spine. Levels with abnormalities include: T1-2: There is disc osteophyte complex with mild indentation upon the ventral thecal sac without significant spinal stenosis. Facet degenerative change contributes to fairly severe left and likely moderate right neural foramina compromise. T2-3: There is again left paracentral protrusion with mild indentation upon the ventral thecal sac, mild narrowing of the central canal and mild deformity of the left ventral cord as seen previously. T5-T6: Facet degenerative change contributes to mild narrowing of the right neural foramen. T6-T7: Facet hypertrophic change contributes to severe narrowing of the left neural foramen. There is a minimal posterior bulge without significant spinal stenosis. T7-8: There is disc osteophyte complex indenting the ventral thecal sac, overall mild attenuation of the thecal sac. T8-T9: There is negligible disc osteophyte complex without significant spinal stenosis. T9-10: There is again bulge/broad protrusion. In combination with facet degenerative change and buckling of the ligamentum flavum, there is effacement of the ventral and dorsal subarachnoid space and contact of the cord, fairly severe spinal stenosis. There is likely increased T2 and STIR signal of the cord at this level. Residual AP thecal sac is estimated about 4 mm. Facet degenerative change contributes to severe neural foramina compromise bilaterally. T10-11: There are again posterior osteophytes more eccentric to left lateral recess with moderate to severe left lateral recess stenosis. There has been posterior decompression, central canal adequate. Facet degenerative change contributes to moderate to severe left greater than right neural foramina compromise. T11-12: There has been posterior decompression, spinal canal adequate. Facet degenerative change contributes to fairly severe right greater than left neural foramina compromise. L1-L2: There is facet hypertrophic change. There is disc osteophyte complex and protrusion contributing to mild to moderate spinal stenosis with lateral recess stenosis bilaterally, findings similar to August 21, 2016 MR lumbar spine exam. As seen on the localizer, there is multilevel cervical degenerative disc disease and spondylosis, multilevel cervical spinal stenosis poorly characterized on this exam probably greatest at C6-7. Impression: 1. There is again fairly severe spinal stenosis T9-10 at which there is likely cord edema. There is again left lateral recess stenosis by osteophytes at T10-11. There is multilevel facet degenerative change change contributing to multilevel significant thoracic neural foramina compromise. 2. Compared with the previous August 2016 exam, there has been progression of degenerative disc disease T6-7 with associated endplate edema, more likely reactive/degenerative in etiology. There is again advanced degenerative disc disease and endplate edema at T9-10. 3. Poorly characterized on this exam, there is multilevel cervical degenerative disc disease and spondylosis as well as spinal stenosis. Electronically signed by: Kev Garnica MD (04/11/2018 4:50 PM) [facility]
== END | disposition home or self-care (01) ==
LOC: KCIC MRI 14:24
PROVIDERS: ATTEND Neurological Surgery
DX: M51.34 Other intervertebral disc degeneration, thoracic region (principal); M50.323 Other cervical disc degeneration at C6-C7 level; M48.02 Spinal stenosis, cervical region; M47.892 Other spondylosis, cervical region; M25.78 Osteophyte, vertebrae; M48.04 Spinal stenosis, thoracic region; M51.24 Other intervertebral disc displacement, thoracic region
CPT/HCPCS: 72146

== ENCOUNTER 2019-03-02 08:22 | Inpatient (IN) | payer MEDICARE ==
[~2019-03-02] VITALS: Ht 162.6 cm; Wt 123.8 kg
[2019-03-02 08:10] VITALS: BP 147/57
[~2019-03-02 08:22] MED LIST changes: +HYDR-2145 PO; -HYDR-2758 PO; +HYDR-2761 PO; -HYDR25TA9 PO; +LOSA100T14 PO; -LOSA100T7 PO
[2019-03-02 11:50] VITALS: BP 105/60
--- NOTE | 2019-03-02 13:38 | HP ---
ADMIT DATE: 03/02/2019 HISTORY OF PRESENT ILLNESS: The patient is a 79-year-old female patient who came to the emergency room complaining of pain in her neck and behind her ears bilaterally and described as burning sensation with tingling and numbness along the both upper extremities on the inner aspect affecting the ring and little finger on both hands. She was extensively investigated in the emergency room of [facility]. Apparently, she has had no trauma or fall. She has never had any chickenpox as a child and apparently she has chronic lumbar spinal stenosis and she had had surgery 3 times. She is mostly wheelchair bound because of gait instability and severe peripheral neuropathy. She is mostly wheelchair bound. Her surgeries were done by Dr. Mcneill at this hospital according to her. PAST MEDICAL HISTORY: Significant for hypertension, chronic kidney disease, hypothyroidism, morbid obesity, obstructive sleep apnea, generalized osteoarthritis and lumbar spinal stenosis. PAST SURGICAL HISTORY: Significant for back surgery x 3, left mastectomy, cholecystectomy, appendectomy, total abdominal hysterectomy, bilateral salpingo-oophorectomy, rotator cuff repair x 2 and carpal tunnel release on both sides. ALLERGIES: SHE IS ALLERGIC TO IODINE and SULFA DRUGS. MEDICATIONS: She is apparently on losartan/hydrochlorothiazide, Neurontin, hydrocodone and levothyroxine and the exact dose is not known to her. We will have to call the [facility] at [facility] to find out the exact dosage. FAMILY HISTORY: She has one brother still alive and has COPD. Father at age of 55 after he was electrocuted. Her mother at age of 93 because of pulmonary embolism. SOCIAL HISTORY: , lives alone. She has 3 sons and 2 daughters. She never smoked, does not drink alcohol or use recreational drugs. 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 She also worked at [employer]. REVIEW OF SYSTEMS: The patient denied any blurring of vision, cataract, glaucoma or macular degeneration. Denied any earache, tinnitus associated deafness. Denied any nosebleeds, stuffy nose or postnasal drip. Denied any sore throat, sore tongue, toothache, hoarseness of voice or difficulty swallowing. Denied any nausea, vomiting, diarrhea or constipation. Denied any hematemesis, melena or hematochezia. Denied any dysuria, frequency or hematuria. Denied any chest pain, shortness of breath, orthopnea, paroxysmal nocturnal dyspnea. Denied any cough, phlegm or hemoptysis. PHYSICAL EXAMINATION: GENERAL: On arrival to the emergency room, she looked well and was clearly in no apparent respiratory distress, slightly pale, no jaundice, cyanosis, or thyromegaly. No jugular venous distension. No limb edema. VITAL SIGNS: Her heart rate was 72, blood pressure was 110/50, temperature was 98, respiratory rate was 20, and oxygen saturation was 96% on room air. HEAD, EYES, EARS, NOSE AND THROAT: Showed normocephalic, atraumatic. NECK: Supple. HEART: Showed normal first and second heart sounds. No gallop or murmur. CHEST: Clear to auscultation. No crepitation or rhonchi. ABDOMEN: Distended, soft, nontender. No guarding or rigidity. No organomegaly. All hernial orifice intact. Bowel sounds normal. NEUROLOGIC: She is alert, oriented x 3. All her cranial nerves are intact. She moves upper extremities without difficulty, although she apparently has marked gait instability and has been unable to ambulate for almost a year now. She has a scooter. LABORATORY DATA: While in the emergency room, she has had lab work done, which showed that her white cell count was 10,000, hemoglobin 12.5, hematocrit 38, MCV 83 and platelet count 279,000 with normal manual differential. Her chemistry showed a serum sodium of 132, potassium 3.9, chloride 93, bicarbonate 31, anion gap of 8, BUN 18, creatinine 1.2, estimated GFR was 44 mL per minute. Her glucose 157, calcium was 9.7, magnesium was 1.9. Total bilirubin, AST, ALT, alkaline phosphatase were normal. Total protein was 8, albumin was 3.6. Lipase was 103. She has 2 sets of cardiac enzymes showed troponin to be less than 0.017. Her prothrombin time, INR and APTT were normal. Her D-dimer was slightly elevated at 1.14 mg/dL. Urinalysis showed the urine was yellow, hazy with a pH of 6, specific gravity of 1.020. There is a small amount of protein. The urine was negative for glucose, ketones, blood, nitrite, leukocyte esterase. There are no rbc's, no wbc's, but there is moderate amount of bacteria. Her toxic screen was negative. She has had a chest x-ray, which showed no radiographic evidence of an acute cardiopulmonary process. She did have a CT scan of the head, which showed no abnormal attenuation within the brain parenchyma, no evidence of acute intracranial hemorrhage, no extra-axial fluid collection, no mass effect or midline shift. Ventricular size appropriate. Basal cisterns are patent. No fracture identified. Olmos-white differentiation is preserved. Globes and orbits are within normal limits. Paranasal sinuses and mastoid air cells are all clear. CT scan of the cervical spine showed that the patient has severe intervertebral disk height loss identified in the cervical spine throughout at C3-C4, C4-C5, C5-C6, C6-C7 and C7-T1 vertebral levels. The bilateral facets are well aligned. The paraspinal soft tissues are unremarkable. The visualized intracranial contents are unremarkable. Lung apices are clear. She has had bilateral carotid Doppler ultrasound, which showed that there is no evidence of hemodynamically significant stenosis. As she has elevated D-dimer, she underwent bilateral lower extremity venous Doppler ultrasound, which showed no evidence of DVT in the bilateral lower extremity venous system. ASSESSMENT AND PLAN: The patient was transferred to [facility] to consult the neurosurgical team and also to arrange for an MRI of her cervical spine and to do also V/Q scan given that SHE IS ALLERGIC TO IODINE. Meanwhile, we will continue with all her medication. JOIE GRAY MD DR: JUNITO/eduin JOB#: [id number] / [id number]
[2019-03-02] MEDS: GABAPENTIN 100 MG CAPSULE. PO SCH ×2 (15:09→22:24)
[2019-03-02] MEDS: LEVOTHYROXINE 50 MCG TABLET PO SCH (15:10)
[2019-03-02 15:34] VITALS: BP 122/65
[2019-03-02 19:26] VITALS: BP 135/50
[2019-03-02 23:00] VITALS: BP 153/58
[2019-03-03 02:45] VITALS: BP 142/72
[2019-03-03 03:50] LABS: HEMATOCRIT 32.1 % (36.0-47.0); HEMOGLOBIN 10.7 g/dL (12.0-15.5); RED BLOOD COUNT 3.87 x10^6/uL (3.50-5.40); RED CELL DISTRIBUTION WIDTH 14.8 % (11.5-14.5); WHITE BLOOD COUNT 6.8 x10^3/uL (4.0-11.0)
[2019-03-03 04:15] LABS: ALBUMIN 2.9 g/dL (3.4-5.0); ALBUMIN/GLOBULIN RATIO 0.8 (1.0-1.7); CALCIUM 9.2 mg/dL (8.5-10.1); CREATININE 1.1 mg/dL (0.6-1.0); GFR 48.2; POTASSIUM 4.1 mmol/L (3.5-5.1); TOTAL BILIRUBIN 0.2 mg/dL (0.2-1.0); TOTAL PROTEIN 6.6 g/dL (6.4-8.2)
[2019-03-03] MEDS: LEVOTHYROXINE 50 MCG TABLET PO SCH (05:31)
[2019-03-03 07:00] VITALS: BP 167/72
[2019-03-03] MEDS: GABAPENTIN 100 MG CAPSULE. PO SCH ×3 (09:12→20:43)
--- NOTE | 2019-03-03 09:17 | RAD ---
MRI Cervical Spine Without Contrast History: Neck pain, numbness in upper extremities bilaterally Technique: Multiplanar, multi sequential noncontrast MR imaging was performed of the cervical spine. Comparison: November 10, 2016 Findings: Both this exam and previous comparison exam is degraded by motion. Cervical vertebral body stature is overall maintained. There is again negligible anterior spondylolisthesis at C7-T1, very minimal posterior subluxation C4 relative to C5. There is straightening of cervical spine. Cervical cord caliber is within normal limits without expansile signal abnormality, limited evaluation for subtle signal change due to artifact. There is again the moderate to severe degenerative disc disease variably C4-5 to C6-7 and T1-2 and to a somewhat lesser degree at C3-4, C7-T1, T2-3. There is minimal C5-C6 endplate edema as seen previously likely reactive/degenerative in etiology. C2-C3: Neural foramina and spinal canal are adequate. C3-C4: There is disc osteophyte complex and bulge. There is buckling of the ligamentum flavum. Central canal is narrowed to about 6-7 mm, questionably slightly greater in interval. There is bilateral facet hypertrophic change greater on the right. There is degree of uncovertebral degenerative change. Neural foramina are poorly characterized, probable fairly severe right and moderate to severe left neural foramina compromise. C4-C5: There is again broad disc osteophyte complex superimposed on the minimally posteriorly subluxed C4 vertebral body margin. There is degree of buckling of the ligamentum flavum. There is again effacement of ventral and dorsal subarachnoid space with contact of the cord, central canal likely narrowed to about 5 mm. There is bilateral facet degenerative change, also uncovertebral degenerative change greater on the right. Neural foramina are poorly characterized, probable fairly severe right and moderate to severe left neural foramina compromise. C5-C6: There is disc osteophyte complex and bulge. There is buckling of the ligamentum flavum. There is effacement of ventral and dorsal subarachnoid space and contact of the cord somewhat greater left lateral recess. Central canal is likely narrowed to about 5 to 6 mm. There is facet degenerative change bilaterally. There is also uncovertebral degenerative change. Neural foramina poorly characterized, probable at least [id number] neural foramina compromise. C6-C7: There is disc osteophyte complex and bulge/protrusion as seen previously. Central canal is narrowed to about 6-7 mm. There is effacement of ventral subarachnoid space and contact of the ventral cord. There is uncovertebral degenerative change. There is suspected fairly severe narrowing of the left neural foramen, likely at least moderate narrowing on the right. C7-T1: There is bilateral facet hypertrophic change. Central canal is borderline about 10 mm. There is mild uncovertebral degenerative change. There is probable at least mild narrowing of the left neural foramen, right neural foramen not significantly narrowed. Impression: 1. Exam is degraded by motion. There is multilevel cervical spinal stenosis greatest at C4-5 and C5-6 at which central canal is narrowed on the order of 5 mm, somewhat lesser degree of central canal stenosis C3-4 and C6-7 on the order of 6 to 7 mm. 2. Neural foramina are poorly characterized due to motion, suspected multilevel cervical neural foramina compromise due to facet and uncovertebral degenerative change likely greatest bilaterally at C3-4, C4-5, and C6-7 and to a somewhat lesser degree at C5-C6.. 3. There is multilevel degenerative disc disease greatest C4-5 to C6-7. There is multilevel mild spondylosis. Electronically signed by: Kev Garnica MD (03/03/2019 9:14 AM) [id number]
[2019-03-03 11:00] VITALS: BP 148/61
[2019-03-03] MEDS: LOSARTAN POTASSIUM 50 MG TABLET. PO SCH (11:13)
[2019-03-03] MEDS: hydroCHLOROthiazide 25 MG TABLET PO SCH (11:13)
--- NOTE | 2019-03-03 11:15 | RAD ---
Examination: PORTABLE CHEST 1V History: Chest pain Comparison/Correlation: None Findings: Portable upright frontal view of the chest was obtained. Heart size is within normal limits. No pneumothorax. No definite infiltrate. Evaluation of the left costophrenic angle is limited due to overlying soft tissues. [place] sutures involve the left humeral head. Advanced left glenohumeral joint degenerative remodeling is present. Sclerosis involving the right humeral head also seen. Impression: No infiltrate. Electronically signed by: Joey Carrion MD (03/03/2019 11:12 AM) [facility]
--- NOTE | 2019-03-03 11:18 | RAD ---
Examination: LUNG VENT/PERFUSION SCAN(VQ) History: Chest pain, elevated d-dimer Comparison/Correlation: 03/03/2019 portable chest x-ray exam Findings: 5 4 mCi xenon-133 gas was administered for ventilation imaging. Imaging was performed in the anterior and posterior projections. Delayed washout of radiotracer compatible with COPD is present. 5.5 mCi technetium 99m MAA was intravenously administered for purposes of perfusion imaging. Images were performed in 8 projections. There is no mismatch or mismatched defect. Perfusion is unremarkable. Impression: Low probability for pulmonary embolism. COPD. Electronically signed by: Joey Carrion MD (03/03/2019 11:15 AM) [facility]
--- NOTE | 2019-03-03 12:07 | PN ---
DATE: 03/03/2019 SUBJECTIVE: The patient is resting slightly propped up in bed, no apparent distress. She was seen initially at [facility] with severe neck pain with tingling and numbness in both arms, both hands, mostly involving the ring and little fingers on both sides. Her D-dimer was also elevated. HOWEVER, SHE IS ALLERGIC TO IODINE AND IODINE-CONTAINING PRODUCTS. Therefore, she was transferred to [facility] to consult the Neurosurgical team after obtaining the MRI and also do a V/Q scan. She did have an MRI, which confirmed that there is multilevel cervical spinal stenosis, greatest at C4-C5 and C5-C6 with central canal is narrowed in order of 5 mm; somewhat lesser degree of central canal stenosis at C3-C4 and C6-C7 in the order of 6-7 mm; neural foramina are poorly characterized due to motion; suspected multilevel cervical neural foramina compromised due to facet and uncovertebral degenerative changes, likely greatest bilaterally at C3-C4, C4-C5 and C6-C7 and to somewhat lesser degree at C5-C6; there is multilevel degenerative disk disease, greatest at C4-C5 and C6-C7. The patient was continued on Lovenox subcutaneously twice a day. Once we have the result of the V/Q scan, we either switch her to oral anticoagulant or discontinue anticoagulation altogether. PHYSICAL EXAMINATION: GENERAL: When I saw her this morning, she was resting slightly propped up in bed, in no apparent respiratory distress, pale. No jaundice, cyanosis or thyromegaly. No jugular venous distension. No lower limb edema. VITAL SIGNS: Her heart rate was 87, blood pressure was 167/72, temperature was 97.7, respiratory rate was 16 and oxygen saturation was 96% on room air. The rest of clinical exam stable, has not really changed. LABORATORY DATA: Her lab work this morning showed a white cell count of 6800, hemoglobin 10.7, hematocrit 32, MCV 83 and platelet count 235,000. Her chemistry showed a serum sodium of 136, potassium 4.1, chloride 101, bicarbonate 28, anion gap of 7, BUN 18, creatinine 1.1. Estimated GFR was 48 mL per minute. Her glucose was 97. Calcium was 9.2. Total bilirubin, AST, ALT, alkaline phosphatase are normal. Her total protein was 6.6. Albumin was 2.9. ASSESSMENT: This is a 79-year-old female patient, who was admitted with severe neck pain with radiation to both arms involving particularly both hands, particularly ring and little fingers on both sides. She has multiple other medical problems including: A. Hypertension. B. Chronic kidney disease. C. Hypothyroidism. D. Morbid obesity, obstructive sleep apnea. E. Generalized osteoarthritis. F. Lumbar spinal stenosis. MRI confirmed that she has severe cervical myelopathy. I have consulted Dr. Marco Antonio Lopez to evaluate the patient. We did also arrange for her to have V/Q scan given the elevated D-dimer. Once we have the result, we will decide on further management accordingly. JOIE GRAY MD DR: [email or web address]/eduin JOB#: [id number] / [id number]
--- NOTE | 2019-03-03 14:40 | PDOC2 ---
CONSULT Date of Consult Date of Consult DATE: 03/03/19 TIME: 14:36 Reason for Consult Reason for Consult: cervical stenosis Past Medical History Cardiovascular: HTN Pulmonary: No pertinent hx CENTRAL NERVOUS SYSTEM: Other GI: No pertinent hx Heme/Onc: No pertinent hx Hepatobiliary: No pertinent hx Psych: No pertinent hx Rheumatologic: No pertinent hx Infectious disease: No pertinent hx Renal/: No pertinent hx Endocrine: No pertinent hx Past Surgical History Past Surgical History: Other Family History Family History: Hypertension Social History ALCOHOL: none Drugs: None Current Medications Current Medications Current Medications Enoxaparin Sodium (Lovenox 150mg Syringe) 135 mg Q12H SQ Last administered on 03/03/19at 09:13; Start 03/02/19 at 10:00 Enoxaparin Sodium (Lovenox Per Pharmacy Treatment Dosing) 1 each PRN DAILY PRN MC SEE COMMENTS; Start 03/02/19 at 09:45 Levothyroxine Sodium (Synthroid) 50 mcg DAILY06 PO Last administered on 03/03/19at 05:31; Start 03/02/19 at 13:00 Gabapentin (Neurontin) 100 mg TID PO Last administered on 03/03/19at 09:13; Start 03/02/19 at 14:00 Losartan Potassium (Cozaar) 100 mg DAILY PO Last administered on 03/03/19at 11:13; Start 03/03/19 at 10:00 Hydrochlorothiazide (Hydrodiuril) 25 mg DAILY PO Last administered on 03/03/19at 11:13; Start 03/03/19 at 10:00 Hydrochlorothiazide (Hydrodiuril) 25 mg DAILY PO ; Start 03/04/19 at 09:00; Status UNV Active Scripts Active Reported Ambien (Zolpidem Tartrate) 10 Mg Tablet 1 Tab PO QHS Losartan-Hctz 100-25 Mg Tab (Losartan/Hydrochlorothiazide) 1 Each Tablet 1 Tab PO DAILY LAST DOSE GIVEN: DATE:03/14/16 TIME:9:00 a.m. NEXT DOSE DUE: DATE:03/16/16 TIME:9:00 a.m. Naproxen Sodium 550 Mg Tablet 550 Mg PO BID Allergies Allergies: Coded Allergies: Iodine and Iodide Containing Produc (Verified Allergy, Intermediate, HOT FLASHES, 03/14/16) CONTRAST Sulfa (Sulfonamide Antibiotics) (Verified Allergy, Intermediate, 03/14/16) Vitals VITALS Vital Signs Date Time Temp Pulse Resp B/P (MAP) Pulse Ox O2 Delivery O2 Flow Rate FiO2 03/03/19 11:13 73 148/61 03/03/19 11:00 98.4 18 99 98.4 03/03/19 08:00 Room Air Labs Labs Laboratory Tests Test 03/03/19 02:50 White Blood Count 6.8 x10^3/uL (4.0-11.0) Red Blood Count 3.87 x10^6/uL (3.50-5.40) Hemoglobin 10.7 g/dL (12.0-15.5) Hematocrit 32.1 % (36.0-47.0) Mean Corpuscular Volume 83 fL (79-100) Mean Corpuscular Hemoglobin 28 pg (25-35) Mean Corpuscular Hemoglobin Concent 33 g/dL (31-37) Red Cell Distribution Width 14.8 % (11.5-14.5) Platelet Count 235 x10^3/uL (140-400) Sodium Level 136 mmol/L (136-145) Potassium Level 4.1 mmol/L (3.5-5.1) Chloride Level 101 mmol/L (98-107) Carbon Dioxide Level 28 mmol/L (21-32) Anion Gap 7 (6-14) Blood Urea Nitrogen 18 mg/dL (7-20) Creatinine 1.1 mg/dL (0.6-1.0) Estimated GFR (Cockcroft-Gault) 48.2 BUN/Creatinine Ratio 16 (6-20) Glucose Level 97 mg/dL (70-99) Calcium Level 9.2 mg/dL (8.5-10.1) Total Bilirubin 0.2 mg/dL (0.2-1.0) Aspartate Amino Transf (AST/SGOT) 17 U/L (15-37) Alanine Aminotransferase (ALT/SGPT) 6 U/L (14-59) Alkaline Phosphatase 57 U/L (46-116) Total Protein 6.6 g/dL (6.4-8.2) Albumin 2.9 g/dL (3.4-5.0) Albumin/Globulin Ratio 0.8 (1.0-1.7) Laboratory Tests Test 03/03/19 02:50 White Blood Count 6.8 x10^3/uL (4.0-11.0) Red Blood Count 3.87 x10^6/uL (3.50-5.40) Hemoglobin 10.7 g/dL (12.0-15.5) Hematocrit 32.1 % (36.0-47.0) Mean Corpuscular Volume 83 fL (79-100) Mean Corpuscular Hemoglobin 28 pg (25-35) Mean Corpuscular Hemoglobin Concent 33 g/dL (31-37) Red Cell Distribution Width 14.8 % (11.5-14.5) Platelet Count 235 x10^3/uL (140-400) Sodium Level 136 mmol/L (136-145) Potassium Level 4.1 mmol/L (3.5-5.1) Chloride Level 101 mmol/L (98-107) Carbon Dioxide Level 28 mmol/L (21-32) Anion Gap 7 (6-14) Blood Urea Nitrogen 18 mg/dL (7-20) Creatinine 1.1 mg/dL (0.6-1.0) Estimated GFR (Cockcroft-Gault) 48.2 BUN/Creatinine Ratio 16 (6-20) Glucose Level 97 mg/dL (70-99) Calcium Level 9.2 mg/dL (8.5-10.1) Total Bilirubin 0.2 mg/dL (0.2-1.0) Aspartate Amino Transf (AST/SGOT) 17 U/L (15-37) Alanine Aminotransferase (ALT/SGPT) 6 U/L (14-59) Alkaline Phosphatase 57 U/L (46-116) Total Protein 6.6 g/dL (6.4-8.2) Albumin 2.9 g/dL (3.4-5.0) Albumin/Globulin Ratio 0.8 (1.0-1.7) Assessment/Plan Assessment/Plan Pt seen and examined. Full consult to follow. Discussed potential options i ncluding possible multilevel decompressive surgery which may involve instrumentation including extensive discussion of risks benefits and expectations. Currently undergoing workup with elevated d-dimer. Receiving anticoagulation. Also, has history of thoracic stenosis. Discussed reimaging of this, but she wishes to think about the extent of her workup and extent to which she wishes pursue potential treatment options as this time. MOHAN WILKES MD Mar 03, 2019 14:40
[2019-03-03 14:53] VITALS: BP 124/55
[2019-03-03 19:09] VITALS: BP 153/77
[2019-03-03] MEDS: ENOXAPARIN 40 MG/0.4 ML SYRINGE. SQ SCH (20:43)
[2019-03-03 22:21] VITALS: BP 146/71
[2019-03-04 03:11] VITALS: BP 156/72
[2019-03-04] MEDS: LEVOTHYROXINE 50 MCG TABLET PO SCH (06:28)
[2019-03-04 07:28] VITALS: BP 158/74
[2019-03-04] MEDS ORDERED: hydroCHLOROthiazide 25 MG TABLET PO SCH (09:00)
[2019-03-04] MEDS: GABAPENTIN 100 MG CAPSULE. PO SCH ×2 (09:13→14:21)
[2019-03-04] MEDS: LOSARTAN POTASSIUM 50 MG TABLET. PO SCH (09:13)
[2019-03-04] MEDS: ENOXAPARIN 40 MG/0.4 ML SYRINGE. SQ SCH ×2 (09:13→21:26)
[2019-03-04] MEDS: hydroCHLOROthiazide 25 MG TABLET PO SCH (09:14)
--- NOTE | 2019-03-04 10:08 | PDOC2 ---
NEUROLOGY CONSULT Date of Admission Date of Admission DATE: 03/04/19 TIME: 10:07 Reason for Consult Reason for Consult: Slowness of responses Referring Physician Referring Physician: Dr. Ugalde Source Source: Caregiver (son), Chart review, Patient History of Present Illness History of Present Illness The patient is 79-year-old right-handed female who called her son on the night of 03/01 complaining that she just did not feel right. He came right over as he detected some problems with her on the phone. She was just acting sluggish. She was complaining of neck pain and arm pain. She went to the [facility] emergency department where she did have carotid Doppler studies and CT of the head and cervical spine. She was then transferred down here. She had MRI the cervical spine is reviewed below. She has seen Dr. Lopez's. Blood pressure was low at her home, she says, and then was higher in the emergency department, 154/90 either records. She is feeling better now. She gets around in a power chair, having had several lumbar spine surgeries. She also has thoracic spinal stenosis. In addition, she is had long-standing numbness in the legs, with no evidence of diabetes or alcoholism. She does recall having an EMG study several years ago. Past Medical History Cardiovascular: HTN Pulmonary: Pneumonia, Other ( sleep apnea) CENTRAL NERVOUS SYSTEM: Periperal neuropathy (?) GI: GERD Musculoskeletal: low back pain, Other ( cervical, thoracic, lumbar spinal stenosis) ENT: Other (Left ear tinnitus) Endocrine: Hypothyroidism Past Surgical History Past Surgical History: Cholecystectomy, Hysterectomy, Other ( nephrectomy, noncancerous, bilateral rotator cuff, bilateral carpal tunnel, lumbar times 3) Family History Family History: Hypertension Social History Social History , lives alone, son lives down the road, no alcohol or tobacco Current Medications Current Medications Current Medications Enoxaparin Sodium (Lovenox 150mg Syringe) 135 mg Q12H SQ Last administered on 03/03/19at 09:13; Start 03/02/19 at 10:00; Stop 03/03/19 at 14:57; Status DC Enoxaparin Sodium (Lovenox Per Pharmacy Treatment Dosing) 1 each PRN DAILY PRN [facility] SEE COMMENTS; Start 03/02/19 at 09:45; Status Cancel Levothyroxine Sodium (Synthroid) 50 mcg DAILY06 PO Last administered on 03/04/19 06:28; Start 03/02/19 at 13:00 Gabapentin (Neurontin) 100 mg TID PO Last administered on 03/04/19 09:14; Start 03/02/19 at 14:00 Losartan Potassium (Cozaar) 100 mg DAILY PO Last administered on 03/04/19 09:14; Start 03/03/19 at 10:00 Hydrochlorothiazide (Hydrodiuril) 25 mg DAILY PO Last administered on 03/04/19 09:14; Start 03/03/19 at 10:00 Hydrochlorothiazide (Hydrodiuril) 25 mg DAILY PO ; Start 03/04/19 at 09:00; Status UNV Enoxaparin Sodium (Lovenox 40mg Syringe) 40 mg Q12HR SQ Last administered on 03/04/19 09:14; Start 03/03/19 at 21:00 Active Scripts Active Reported Ambien (Zolpidem Tartrate) 10 Mg Tablet 1 Tab PO QHS Losartan-Hctz 100-25 Mg Tab (Losartan/Hydrochlorothiazide) 1 Each Tablet 1 Tab PO DAILY LAST DOSE GIVEN: DATE:03/14/16 TIME:9:00 a.m. NEXT DOSE DUE: DATE:03/16/16 TIME:9:00 a.m. Naproxen Sodium 550 Mg Tablet 550 Mg PO BID Allergies Allergies: Coded Allergies: Iodine and Iodide Containing Produc (Verified Allergy, Intermediate, HOT FLASHES, 03/14/16) CONTRAST Sulfa (Sulfonamide Antibiotics) (Verified Allergy, Intermediate, 03/14/16) ROS Review of System Negative for fever, chills, weight loss, shortness of breath, chest pain, indigestion, hematochezia, melena, and dysuria. Full 14-point review of systems is negative. Physical Exam Physical Examination General: Well-developed, well-nourished, obese white female in no acute distress HEENT: Normocephalic and�atraumatic. �Temporal arteries�pulsatile and nontender. Neck: Supple without bruit, no meningismus� Musculoskeletal: Stability:�see neurologic. Gait exam:�see neurologic. Tone:�see neurologic.�Strength:�see neurologic.� Neurological: Mental Status:�intact, orientation, memory, attention span/concentration, language, fund of knowledge normal. Cranial Nerves:�Pupils equal and reactive to light, extraocular movements are�intact, visual fleming are full to confrontation. Facial sensation is normal. There is no facial asymmetry. Vestibulo-ocular reflex is intact. Palate elevates and tongue protrudes in midline. All other cranial related problems are negative except as mentioned before.�Reflexes:�0-1+ and symmetric with flexor plantar responses. Motor:�4/5 strength with normal tone and bulk. Coordination:�Finger-nose finger and qwne-fv-mkes testing are normal. Rapid alternating movements and fine finger movements are intact. Gait:�not tested. Sensory:�stocking loss Vitals VITALS Vital Signs Date Time Temp Pulse Resp B/P (MAP) Pulse Ox O2 Delivery O2 Flow Rate FiO2 03/04/19 09:14 67 158/74 03/04/19 08:00 Room Air 03/04/19 07:28 98.6 18 99 98.6 Labs Labs Laboratory studies from [facility]: TSH 3.115, cholesterol 203, LDL 120, sodium 132, negative urine drug screen, normal CBC Laboratory Tests Test 03/03/19 02:50 White Blood Count 6.8 x10^3/uL (4.0-11.0) Red Blood Count 3.87 x10^6/uL (3.50-5.40) Hemoglobin 10.7 g/dL (12.0-15.5) Hematocrit 32.1 % (36.0-47.0) Mean Corpuscular Volume 83 fL (79-100) Mean Corpuscular Hemoglobin 28 pg (25-35) Mean Corpuscular Hemoglobin Concent 33 g/dL (31-37) Red Cell Distribution Width 14.8 % (11.5-14.5) Platelet Count 235 x10^3/uL (140-400) Sodium Level 136 mmol/L (136-145) Potassium Level 4.1 mmol/L (3.5-5.1) Chloride Level 101 mmol/L (98-107) Carbon Dioxide Level 28 mmol/L (21-32) Anion Gap 7 (6-14) Blood Urea Nitrogen 18 mg/dL (7-20) Creatinine 1.1 mg/dL (0.6-1.0) Estimated GFR (Cockcroft-Gault) 48.2 BUN/Creatinine Ratio 16 (6-20) Glucose Level 97 mg/dL (70-99) Calcium Level 9.2 mg/dL (8.5-10.1) Total Bilirubin 0.2 mg/dL (0.2-1.0) Aspartate Amino Transf (AST/SGOT) 17 U/L (15-37) Alanine Aminotransferase (ALT/SGPT) 6 U/L (14-59) Alkaline Phosphatase 57 U/L (46-116) Total Protein 6.6 g/dL (6.4-8.2) Albumin 2.9 g/dL (3.4-5.0) Albumin/Globulin Ratio 0.8 (1.0-1.7) Images Images MRI Cervical Spine Without Contrast History: Neck pain, numbness in upper extremities bilaterally Technique: Multiplanar, multi sequential noncontrast MR imaging was performed of the cervical spine. Comparison: November 10, 2016 Findings: Both this exam and previous comparison exam is degraded by motion. Cervical vertebral body stature is overall maintained. There is again negligible anterior spondylolisthesis at C7-T1, very minimal posterior subluxation C4 relative to C5. There is straightening of cervical spine. Cervical cord caliber is within normal limits without expansile signal abnormality, limited evaluation for subtle signal change due to artifact. There is again the moderate to severe degenerative disc disease variably C4-5 to C6-7 and T1-2 and to a somewhat lesser degree at C3-4, C7-T1, T2-3. There is minimal C5-C6 endplate edema as seen previously likely reactive/degenerative in etiology. C2-C3: Neural foramina and spinal canal are adequate. C3-C4: There is disc osteophyte complex and bulge. There is buckling of the ligamentum flavum. Central canal is narrowed to about 6-7 mm, questionably slightly greater in interval. There is bilateral facet hypertrophic change greater on the right. There is degree of uncovertebral degenerative change. Neural foramina are poorly characterized, probable fairly severe right and moderate to severe left neural foramina compromise. C4-C5: There is again broad disc osteophyte complex superimposed on the minimally posteriorly subluxed C4 vertebral body margin. There is degree of buckling of the ligamentum flavum. There is again effacement of ventral and dorsal subarachnoid space with contact of the cord, central canal likely narrowed to about 5 mm. There is bilateral facet degenerative change, also uncovertebral degenerative change greater on the right. Neural foramina are poorly characterized, probable fairly severe right and moderate to severe left neural foramina compromise. C5-C6: There is disc osteophyte complex and bulge. There is buckling of the ligamentum flavum. There is effacement of ventral and dorsal subarachnoid space and contact of the cord somewhat greater left lateral recess. Central canal is likely narrowed to about 5 to 6 mm. There is facet degenerative change bilaterally. There is also uncovertebral degenerative change. Neural foramina poorly characterized, probable at least [id number] neural foramina compromise. C6-C7: There is disc osteophyte complex and bulge/protrusion as seen previously. Central canal is narrowed to about 6-7 mm. There is effacement of ventral subarachnoid space and contact of the ventral cord. There is uncovertebral degenerative change. There is suspected fairly severe narrowing of the left neural foramen, likely at least moderate narrowing on the right. C7-T1: There is bilateral facet hypertrophic change. Central canal is borderline about 10 mm. There is mild uncovertebral degenerative change. There is probable at least mild narrowing of the left neural foramen, right neural foramen not significantly narrowed. Impression: 1. Exam is degraded by motion. There is multilevel cervical spinal stenosis greatest at C4-5 and C5-6 at which central canal is narrowed on the order of 5 mm, somewhat lesser degree of central canal stenosis C3-4 and C6-7 on the order of 6 to 7 mm. 2. Neural foramina are poorly characterized due to motion, suspected multilevel cervical neural foramina compromise due to facet and uncovertebral degenerative change likely greatest bilaterally at C3-4, C4-5, and C6-7 and to a somewhat lesser degree at C5-C6.. 3. There is multilevel degenerative disc disease greatest C4-5 to C6-7. There is multilevel mild spondylosis. CT HEAD, 03/02/19, [facility] No abnormal attenuation within the brain parenchyma. No evidence of acute intracranial hemorrhage. No extra-axial fluid collections. No mass effect or midline shift. Ventricular size is appropriate. Basal cisterns are patent. No fractures identified.Olmos-white differentiation is preserved.Globes and orbits are within normal limits. Paranasal sinuses and mastoid air cells are clear. IMPRESSION: No acute intracranial findings. CT CERVICAL SPINE, 03/02/19, [facility] Vertebral body height and alignment are maintained. There is straightening of normal cervical lordosis. The lateral masses of C1 are aligned upon C2. No fractures identified. The bony canal is patent throughout. Severe intervertebral disc height loss identified in the cervical spine throughout at C3-C4, C4-C5, C5-C6, C6-C7, C7-T1 vertebral levels. The bilateral facets are well aligned. The paraspinous soft tissues are unremarkable. Visualized intracranial contents are unremarkable. Lung apices are clear. IMPRESSION: 1. No acute fracture of cervical spine. Correlate clinically. 2. Severe degenerative changes cervical spine. Carotids, 03/02, [facility]: No evidence of hemodynamically significant stenosis. Assessment/Plan Assessment/Plan Impression: It sounds like she had some encephalopathy the night of 03/01, which has resolved. This may have been due to some sort of infection, hypertension, hypotension, other metabolic derangement. I find 11th of stroke, but still need to rule this out. Severe cervical spondylosis on the MRI, also has history of lumbar and thoracic stenosis Bedside examination more consistent with peripheral neuropathy. Recommendations: MRI of the brain Additional blood work Rehabilitation modalities Possible trial of cervical epidural injections as outpatient. I told the patient and her son that I doubted that cervical surgery--and she would require extensive surgery--will make much of a difference in quality of life, this should be a last resort. Thank you for letting me help with the patient's care. JUANJOSE MOYER MD Mar 04, 2019 10:08
--- NOTE | 2019-03-04 10:18 | PN ---
DATE: 03/04/2019 SUBJECTIVE: The patient is resting, slightly propped up in bed, in no apparent distress. On questioning her, she denied any complaint and she seemed to be reluctant to undergo any further surgery. She was seen by Dr. Lucio, who recommended MRI of the brain and Dr. Lopez recommended MRI of the thoracic spine. Discussed with her various options including extensive surgery that she stated that she is still not yet ready for that and wants to think about it, but she is okay for to go ahead with the MRI of the thoracic spine. OBJECTIVE: GENERAL: When I examined her, she looked pale. No jaundice, cyanosis or thyromegaly. No jugular venous distention. No limb edema. VITAL SIGNS: Her heart rate was 67, blood pressure 158/74, temperature was 98.6, respiratory rate was 18 and oxygen saturation was 99% on room air. The rest of clinical exam is stable, has not really changed. Her intake over the last 24 hours was 750, output was 1000. LABORATORY DATA: Her lab work showed a BUN of 18, creatinine 1.1, hemoglobin was 11, hematocrit 32 with normal white cell count and platelet. ASSESSMENT: 1. Severe neck pain with radiation to both arms, particularly involving her ring and little fingers on both sides. 2. The patient has multiple other medical problems including: A. Hypertension. B. Chronic kidney disease. C. Hypothyroidism. D. Morbid obesity, obstructive sleep apnea, E. Generalized osteoarthritis. F. Lumbar spinal stenosis. 3. Her D-dimer was high, but the V/Q scan was low probability. PLAN: She was seen by Dr. Lopez who recommended to do an MRI of the thoracic spine that I ordered and we will await the result of the MRI of the brain and MRI of the thoracic spine. JOIE GRAY MD DR: [email or web address]/eduin JOB#: [id number] / [id number]
[2019-03-04 11:03] VITALS: BP 161/70
--- NOTE | 2019-03-04 12:22 | RAD ---
MRI Brain without contrast History: Altered mental status, weakness Technique: Multiplanar, multisequential noncontrast MR imaging was performed of the brain. Comparison: November 10, 2016 Findings: There is no evidence of recent infarct or cytotoxic edema. Ventricular size is proportionate to the sulcal spaces, within normal limits. There is [id number] supratentorial atrophy somewhat more greatly affecting frontal lobes. There is mild T2 and FLAIR hyperintense signal abnormality of the supratentorial parenchyma white matter bilaterally as seen previously. There is no significant midline shift, intraaxial mass effect, or focal abnormal extra-axial fluid collection. Not associated with other edema or mass effect, there is now some adjacent foci of hemosiderin deposition of the superior left occipital lobe extending to the cortical surface. Separate tiny focus of old microhemorrhage of the posterior left temporal lobe is also new in interval. There is preservation of the major intracranial flow-voids at the skull base. There is mild thickening and fluid of the left mastoid air cells, very mild thickening on the right.The cerebellar tonsils are normal in location. There is no significant abnormality of the pineal gland or pituitary gland. There is patchy mild bilateral ethmoid air cell mucosal thickening. There is preserved marrow signal of the clivus. Impression: 1. There is no evidence of recent infarct or new intracranial mass effect. New since 2017 exam, there is hemosiderin deposition/old hemorrhage extending to the cortical surface of the superior left occipital lobe, also separate tiny focus of old microhemorrhage of the posterior left temporal lobe. There is overall mild T2 and FLAIR hyperintense signal abnormality of the supratentorial parenchyma bilaterally as seen previously probably due to to chronic microvascular ischemic disease in a patient this age. 2. There is supratentorial atrophy somewhat more greatly affecting frontal lobes. Electronically signed by: Kev Garnica MD (03/04/2019 12:19 PM) [email or web address]
--- NOTE | 2019-03-04 12:37 | PDOC ---
PROGRESS NOTES Subjective Subjective Denies acute complaints at this time. Denies acute changes. Objective Objective Vital Signs Date Time Temp Pulse Resp B/P (MAP) Pulse Ox O2 Delivery O2 Flow Rate FiO2 03/04/19 11:03 98.2 78 18 161/70 (100) 97 Room Air 98.2 Intake and Output 03/04/19 07:00 Intake Total 1660 ml Balance 1660 ml Intake Oral 1660 ml # Voids 3 # Bowel Movements 1 Physical Exam Physical Exam AAOx4, NAD, ALEX baseline, sensation unchanged. MRI thoracic with prominent stenosis one level cephalad to prior surgery - appears similar to prior studies MRI cervical again reviewed with prominent multilevel stenosis Assessment Assessment Problems Medical Problems: (1) CKD (chronic kidney disease) Status: Chronic (2) Generalized osteoarthritis Status: Chronic (3) Hypertension Status: Chronic (4) Hypothyroidism Status: Chronic (5) Lumbar spinal stenosis Status: Chronic (6) CAHNDA (obstructive sleep apnea) Status: Chronic Plan Plan of Care 79 yo F with cervical and thoracic stenosis - there are more chronic symptoms that can be related chronic findings in the spinal axis - discussed potential surgery with relation to more chronic issues including explanation of potential risks, benefits, and expectations - after extensive discussion of these things with her and her family, she explains that does not wish to undergo any surgery to the spinal axis - will be available for any further questions or concerns - all questions answered, all in agreement. Comment Review of Relevant I have reviewed the following items dianne (where applicable) has been applied. Labs Laboratory Tests Test 03/03/19 02:50 White Blood Count 6.8 x10^3/uL (4.0-11.0) Red Blood Count 3.87 x10^6/uL (3.50-5.40) Hemoglobin 10.7 g/dL (12.0-15.5) Hematocrit 32.1 % (36.0-47.0) Mean Corpuscular Volume 83 fL (79-100) Mean Corpuscular Hemoglobin 28 pg (25-35) Mean Corpuscular Hemoglobin Concent 33 g/dL (31-37) Red Cell Distribution Width 14.8 % (11.5-14.5) Platelet Count 235 x10^3/uL (140-400) Sodium Level 136 mmol/L (136-145) Potassium Level 4.1 mmol/L (3.5-5.1) Chloride Level 101 mmol/L (98-107) Carbon Dioxide Level 28 mmol/L (21-32) Anion Gap 7 (6-14) Blood Urea Nitrogen 18 mg/dL (7-20) Creatinine 1.1 mg/dL (0.6-1.0) Estimated GFR (Cockcroft-Gault) 48.2 BUN/Creatinine Ratio 16 (6-20) Glucose Level 97 mg/dL (70-99) Calcium Level 9.2 mg/dL (8.5-10.1) Total Bilirubin 0.2 mg/dL (0.2-1.0) Aspartate Amino Transf (AST/SGOT) 17 U/L (15-37) Alanine Aminotransferase (ALT/SGPT) 6 U/L (14-59) Alkaline Phosphatase 57 U/L (46-116) Total Protein 6.6 g/dL (6.4-8.2) Albumin 2.9 g/dL (3.4-5.0) Albumin/Globulin Ratio 0.8 (1.0-1.7) Medications Current Medications Enoxaparin Sodium (Lovenox 150mg Syringe) 135 mg Q12H SQ Last administered on 03/03/19 09:13; Start 03/02/19 at 10:00; Stop 03/03/19 at 14:57; Status DC Enoxaparin Sodium (Lovenox Per Pharmacy Treatment Dosing) 1 each PRN DAILY PRN [facility] SEE COMMENTS; Start 03/02/19 at 09:45; Status Cancel Levothyroxine Sodium (Synthroid) 50 mcg DAILY06 PO Last administered on 03/04/19 06:28; Start 03/02/19 at 13:00 Gabapentin (Neurontin) 100 mg TID PO Last administered on 03/04/19 09:14; Start 03/02/19 at 14:00 Losartan Potassium (Cozaar) 100 mg DAILY PO Last administered on 03/04/19 09:14; Start 03/03/19 at 10:00 Hydrochlorothiazide (Hydrodiuril) 25 mg DAILY PO Last administered on 03/04/19 09:14; Start 03/03/19 at 10:00 Hydrochlorothiazide (Hydrodiuril) 25 mg DAILY PO ; Start 03/04/19 at 09:00; Status UNV Enoxaparin Sodium (Lovenox 40mg Syringe) 40 mg Q12HR SQ Last administered on 03/04/19at 09:14; Start 03/03/19 at 21:00 Active Scripts Active Reported Ambien (Zolpidem Tartrate) 10 Mg Tablet 1 Tab PO QHS Losartan-Hctz 100-25 Mg Tab (Losartan/Hydrochlorothiazide) 1 Each Tablet 1 Tab PO DAILY LAST DOSE GIVEN: DATE:03/14/16 TIME:9:00 a.m. NEXT DOSE DUE: DATE:03/16/16 TIME:9:00 a.m. Naproxen Sodium 550 Mg Tablet 550 Mg PO BID Vitals/I & O Vital Sign - Last 24 Hours 03/03/19 03/03/19 03/03/19 03/04/19 14:53 19:09 22:21 03:11 Temp 98.1 97.9 98.3 97.9 98.1 97.9 98.3 97.9 Pulse 87 80 75 75 Resp 20 17 19 20 B/P (MAP) 124/55 (78) 153/77 (102) 146/71 (96) 156/72 (100) Pulse Ox 93 97 98 97 O2 Delivery Room Air Room Air BiPAP/CPAP 03/04/19 03/04/19 03/04/19 03/04/19 07:28 08:00 09:14 11:03 Temp 98.6 98.2 98.6 98.2 Pulse 67 67 78 Resp 18 18 B/P (MAP) 158/74 (102) 158/74 161/70 (100) Pulse Ox 99 97 O2 Delivery BiPAP/CPAP Room Air Room Air Intake and Output 03/03/19 03/03/19 03/04/19 15:00 23:00 07:00 Intake Total 540 ml 420 ml 700 ml Balance 540 ml 420 ml 700 ml MOHAN WILKES MD Mar 04, 2019 12:37
--- NOTE | 2019-03-04 14:11 | RAD ---
MRI Thoracic Spine without contrast History: Mid thoracic pain, spinal stenosis Technique: Multiplanar, multi sequential noncontrast MR imaging was performed of the thoracic spine. Comparison: April 11, 2018 Findings: There is some motion degradation. There is again interbody fusion T8-9 and T10-11. There is persistent endplate edema at T9-T10 although somewhat decreased. There is again T6-7 endplate edema. There is no new significant fluid in the intervertebral disc spaces. Thoracic vertebral body stature is similar. There is again advanced degenerative disc disease at T6-7, T7-8, and T1-2, to a lesser degree at other levels. Thoracic cord caliber is within normal limits. There is likely mild increased T2 signal of the cord at site of spinal stenosis T9-10. There is again very mild grade 1 anterior spondylolisthesis T11-12 and T9-T10. As seen on localizer, there is multilevel cervical degenerative disc disease. There is variable cervical spinal stenosis greatest C4-5 to C6-7. Levels with abnormalities include: T1-2: Facet degenerative change again contributes to fairly severe left and probable moderate right neural foramina compromise. There is minimal disc osteophyte complex without significant spinal stenosis. T2-3: There is again left paracentral protrusion indenting the ventral thecal sac with minimal narrowing of the central canal and left lateral recess overall unchanged. T5-T6: Facet degenerative change again contributes to mild posterior narrowing of the right neural foramen, very minimal narrowing on the left. T6-7: Facet degenerative change again contributes to moderate to severe narrowing of the left neural foramen. There is shallow posterior bulge as seen previously without significant spinal stenosis. T7-8: There is again minimal disc osteophyte complex without significant spinal stenosis. There is facet degenerative change and buckling of the ligamentum flavum. There is mild posterior narrowing of the left neural foramen. T8-T9: There is again negligible disc osteophyte complex. There is facet degenerative change and buckling of the ligamentum flavum, very minimal posterior narrowing of the right neural foramen. T9-T10: There is again bulge/broad protrusion. There is buckling of the ligamentum flavum and facet degenerative change. There is again effacement of ventral and dorsal subarachnoid space with severe spinal stenosis, residual AP thecal sac estimated about 0.3 cm, slightly greater than previously. Facet degenerative change contributes to fairly severe neural foramina compromise bilaterally. T10-11: There again has been posterior decompression. There are again posterior osteophytes greater in the left lateral recess contributing to moderate to severe narrowing of the far left lateral recess. There is facet degenerative change contributing to moderate to severe neural foramina compromise bilaterally. T11-12: There again has been posterior decompression. Facet degenerative change again contributes to fairly severe neural foramina compromise bilaterally. L1-2: This level was not included on the axial images. There is again disc osteophyte complex and shallow protrusion with probable at least mild spinal stenosis. Impression: 1. Comparing with the April 2018 exam, there is slightly increased severe spinal stenosis at T9-10 at which there is contact of the cord and likely increased T2 signal of the cord as may be due to edema or myelomalacia given spinal stenosis. There is very mild grade 1 anterior spondylolisthesis T9-T10. 2. There is multilevel facet degenerative change contributing to multilevel thoracic neural foramina compromise as stated. 3. There is again multilevel thoracic degenerative disc disease. There is persistent although somewhat decreased T9-T10 endplate edema, degree of T6-7 endplate edema fairly similar. Endplate edema is likely reactive/degenerative in etiology. 4. As seen on localizer, there is multilevel cervical degenerative disc disease and variable spinal stenosis greatest C4-5 to C6-7. Electronically signed by: Kev Garnica MD (03/04/2019 2:07 PM) [id number]
[2019-03-04 15:15] VITALS: BP 142/62
[2019-03-04] MEDS ORDERED: HYDROcodone/APAP 5/325MG 1 TAB TABLET PO PRN (15:45)
[2019-03-04 19:49] VITALS: BP 137/81
[2019-03-04] MEDS: GABAPENTIN 300 MG CAPSULE. PO SCH (21:25)
[2019-03-04 23:30] VITALS: BP 147/68
[2019-03-05 03:55] VITALS: BP 140/71
[2019-03-05] MEDS: LEVOTHYROXINE 50 MCG TABLET PO SCH (06:18)
[2019-03-05 07:50] VITALS: BP 115/50
[2019-03-05] MEDS: GABAPENTIN 300 MG CAPSULE. PO SCH (08:29)
[2019-03-05] MEDS: hydroCHLOROthiazide 25 MG TABLET PO SCH (08:29)
[2019-03-05] MEDS: ENOXAPARIN 40 MG/0.4 ML SYRINGE. SQ SCH (08:29)
[2019-03-05 08:30] VITALS: BP 115/50
[2019-03-05] MEDS: LOSARTAN POTASSIUM 50 MG TABLET. PO SCH (08:30)
[2019-03-05] MEDS ORDERED: LEVO50TA5 PO (09:15)
[2019-03-05] MEDS ORDERED: GABA300C18 PO (09:15)
--- NOTE | 2019-03-05 09:18 | SNU/HH DC ---
DISCHARGE WITH HOME HEALTH DISCHARGE INFORMATION: Discharge Date: Mar 05, 2019 Final Diagnosis: Problems Medical Problems: (1) CKD (chronic kidney disease) Status: Chronic (2) Generalized osteoarthritis Status: Chronic (3) Hypertension Status: Chronic (4) Hypothyroidism Status: Chronic (5) Lumbar spinal stenosis Status: Chronic (6) CHANDA (obstructive sleep apnea) Status: Chronic Condition on Discharge: Stable CODE STATUS: Code Status: Full HOME HEALTH: Face to Face: I certify this patient is under my care and that I, or a nurse practitioner or physician's physical therapist assistant working with me, had a face to face encounter that meets the physician face to face encounter requirements with this patient on 03/05/19 Medical Complications: STEPHANIE, Other RN For Eval/Treatment: Yes Physical Therapy For: Evalulation/Treatment Occupational Therapy For: Evaluation/Treatment Pt Meets Homebound Status: Limited distance walking POST DISCHARGE ORDERS: Activity Instructions for Disc: Activity as tolerated, Progressive ambulation Weight Bearing Status after Di: Full weight bearing, As tolerated, Non weight bearing Bathing Instructions: No Tub Bath until see DIET AFTER DISCHARGE: Regular Wound/Incision Care: Ice to area for comfort, Change dressing, May get incision wet, Other, see below CERTIFICATION STATEMENT: Certification Statement: Certification Statement: Based on the above finding, I certify that this patient is confined to the home and needs intermittent detention care, physical therapy and/or speech therapy, or continues to need occupational therapy.~ This patient is under my care, and I have initiated the establishment of the plan of care.~ This patient will be followed by myself or a community physician who will periodically review the plan of care. Home Meds Active Scripts Levothyroxine Sodium (LEVOTHYROXINE SODIUM) 50 Mcg Tablet, 1 TAB PO DAILY for hypothyroidism for 30 Days, #30 TAB 5 Refills Prov:JOIE GRAY MD 03/05/19 Gabapentin (GABAPENTIN ) 300 Mg Capsule, 300 MG PO TID for NEUROGENIC PAIN for 30 Days, #90 CAP Prov:JOIE GRAY MD 03/05/19 Reported Medications Zolpidem Tartrate (AMBIEN) 10 Mg Tablet, 1 TAB PO QHS, #30 TAB 5 Refills 03/07/16 Losartan/Hydrochlorothiazide (LOSARTAN-HCTZ 100-25 MG TAB) 1 Each Tablet, 1 TAB PO DAILY for HYPERTENSION, SEE COMMENTS, #30 TAB 5 Refills LAST DOSE GIVEN: DATE:03/14/16 TIME:9:00 a.m. NEXT DOSE DUE: DATE:03/16/16 TIME:9:00 a.m. 03/07/16 Naproxen Sodium (NAPROXEN SODIUM) 550 Mg Tablet, 550 MG PO BID 12/02/14 JOIE GRAY MD Mar 05, 2019 09:18
--- NOTE | 2019-03-05 09:36 | DS ---
DATE OF DISCHARGE: HOSPITAL COURSE: The patient is a 79-year-old female patient who was seen originally at [facility] with sudden severe neck pain with radiculopathy in both sides. She also has some altered mental status. She was transferred to [facility] for an MRI of her cervical spine and also to consult the neurosurgical team as well as neurologist. She was in fact seen by both Dr. Lopez and Dr. Lucio. She has had an MRI of the thoracic and cervical spine and after a lengthy discussion with the neurosurgeon, the patient decided not to pursue any further surgery on her cervical thoracic spine and Dr. Lucio felt that she has had an episode of encephalopathy, multifactorial and basically decision was made to discharge her home with home health. PHYSICAL EXAMINATION: GENERAL: When I saw her this morning, she looked well and was clearly in no apparent respiratory distress, slightly pale, but no jaundice, cyanosis or thyromegaly. No jugular venous distention. No limb edema. VITAL SIGNS: Her heart rate was 73, blood pressure 115/50, temperature was 98.1, respiratory rate was 16, and oxygen saturation was 99% on room air. HEAD, EYES, EARS, NOSE AND THROAT: Showed normocephalic, atraumatic. NECK: Supple. HEART: Showed normal first and second heart sounds. No gallop or murmur. CHEST: Clear to auscultation. No crepitation or rhonchi. ABDOMEN: Distended, soft, nontender. NEUROLOGIC: She is awake, alert, responding appropriately. All her cranial nerves intact. She moves upper extremities without difficulty. She has paraplegia, is mostly bed bound, wheelchair bound. LABORATORY DATA: Showed a serum sodium 136, potassium 4.1, chloride 101, bicarbonate 28, anion gap of 7, BUN 18, creatinine 1.1, estimated GFR was 48 mL per minute. Her glucose was 97, calcium was 9.2. Total bilirubin, AST, ALT, alkaline phosphatase were normal. Total protein 6.6, albumin was 2.9. Her white cell count was 6800, hemoglobin 11, hematocrit 32, MCV 83, and platelet count 235,000. His sedimentation rate was 40 mm per hour. DISCHARGE MEDICATIONS: The patient will be discharged to continue on gabapentin 300 mg 3 times a day, levothyroxine 50 mcg once a day, losartan/hydrochlorothiazide 100/25 one tablet once a day, naproxen 550 mg twice a day, and Ambien 10 mg at bedtime. FINAL DISCHARGE DIAGNOSES: 1. Cervical spondylosis with myelopathy and radiculopathy. 2. Thoracic spondylosis with myelopathy. 3. Chronic kidney disease. 4. Hypertension. 5. Hypothyroidism. 6. Morbid obesity. 7. Obstructive sleep apnea. 8. Lumbar spinal stenosis. 9. Generalized osteoarthritis. JOIE GRAY MD DR: [email or web address] JOB#: [id number] / [id number]
[2019-03-06 01:09] LABS: HEMOGLOBIN A1C 5.9 % (4.8-5.6)
[2019-03-07 11:14] LABS: ALBUM 3.1 g/dL (2.9-4.4); ALPHA 1 0.2 g/dL (0.0-0.4); ALPHA 2 0.9 g/dL (0.4-1.0); BETA 0.5 g/dL (0.7-1.3); GAMMA 1.3 g/dL (0.4-1.8); SPEP AG RATIO 1.1 (0.7-1.7)
== END 2019-03-05 11:20 | disposition home health service (06) | DRG 552 ==
LOC: 6 SOUTH 08:34
PROVIDERS: ADMIT Internal Medicine; ATTEND Internal Medicine
PROC: 5A09357 Assistance with Respiratory Ventilation, Less than 24 Consecutive Hours, Continuous Positive Airway Pressure (ICD-10-PCS; principal; 2019-03-04)
DX: M47.22 Other spondylosis with radiculopathy, cervical region (principal); E44.0 Moderate protein-calorie malnutrition; Z68.42 Body mass index [BMI] 45.0-49.9, adult; M47.14 Other spondylosis with myelopathy, thoracic region; G62.9 Polyneuropathy, unspecified; M48.02 Spinal stenosis, cervical region; M48.04 Spinal stenosis, thoracic region; E66.01 Morbid (severe) obesity due to excess calories; M48.061 Spinal stenosis, lumbar region without neurogenic claudication; M47.12 Other spondylosis with myelopathy, cervical region; M15.9 Polyosteoarthritis, unspecified; N18.9 Chronic kidney disease, unspecified; I12.9 Hypertensive chronic kidney disease with stage 1 through stage 4 chronic kidney disease, or unspecified chronic kidney disease; G47.33 Obstructive sleep apnea (adult) (pediatric); E03.9 Hypothyroidism, unspecified; K21.9 Gastro-esophageal reflux disease without esophagitis; Z99.3 Dependence on wheelchair; Z90.12 Acquired absence of left breast and nipple; Z90.49 Acquired absence of other specified parts of digestive tract; Z90.710 Acquired absence of both cervix and uterus; Z91.041 Radiographic dye allergy status; Z82.5 Family history of asthma and other chronic lower respiratory diseases; Z82.49 Family history of ischemic heart disease and other diseases of the circulatory system; Z87.01 Personal history of pneumonia (recurrent); Z90.5 Acquired absence of kidney
CPT/HCPCS: 36415; 70551; 71045; 72141; 72146; 78582; 80053; 82607; 83036; 84165; 85027; 85651; 86038; 96374; A9540; A9558; J1650; 97110; 97535; G0378

== ENCOUNTER → 2019-03-20 | Outpatient (CLI) | payer MEDICARE ==
[2019-03-05 08:30] VITALS: BP 115/50
[~2019-03-20] MED LIST changes: +GABA300C18 PO; +LEVO50TA5 PO
--- NOTE | 2019-03-20 15:56 | KCIC ---
EXAM: Brain MRI without contrast. HISTORY: Transient ischemic attack. TECHNIQUE: Multiplanar, multisequence magnetic resonance imaging of the brain was performed without contrast. COMPARISON: 03/04/2019. FINDINGS: There is no restricted diffusion to suggest acute or subacute infarction. There is no mass effect or midline shift. There is no hydrocephalus. There are a few areas of T2 such FLAIR hyperintensity within the cerebral white matter, most commonly due to chronic small vessel disease. There is mild cerebral volume loss with compensatory enlargement of the extra-axial space and ventricles. There are normal flow voids within the cerebral vessels. There is hemosiderin deposition likely due to chronic hemorrhage within the left occipital and posterior temporal lobes, stable compared to the prior study. There may also be a tiny focus of chronic hemorrhage within the posterior right temporal lobe. The orbits are unremarkable. The paranasal sinuses are unremarkable. There is a tiny amount of left mastoid fluid. IMPRESSION: 1. No acute intracranial finding. 2. Few focal areas of signal change within the cerebral white matter, likely due to chronic small vessel disease. 3. Stable suspected chronic hemorrhage involving the left occipital lobe and posterior temporal lobes. 4. Cerebral volume loss. Electronically signed by: Brynn Soria MD (03/20/2019 3:53 PM) [email or web address]
== END | disposition home or self-care (01) ==
LOC: KCIC MRI 14:21
PROVIDERS: ATTEND Physician Assistant Medical
DX: G45.9 Transient cerebral ischemic attack, unspecified (principal); G93.89 Other specified disorders of brain
CPT/HCPCS: 70551

== ENCOUNTER → 2019-05-12 | Outpatient (CLI) | payer MEDICARE ==
[2019-05-12 09:54] LABS: CHOLESTEROL/HDL RATIO 3.4
== END | disposition home or self-care (01) ==
LOC: LAB 08:51
PROVIDERS: ATTEND Psychiatry & Neurology Neurology
DX: E78.5 Hyperlipidemia, unspecified (principal); E03.9 Hypothyroidism, unspecified; R53.1 Weakness
CPT/HCPCS: 36415; 80061; 82947; 84443